=== PATIENT | male | born 1965 | race African-American/Black ===

== ENCOUNTER 2018-11-28 11:52 | Inpatient (IN) | payer OTHER ==
[2018-11-28 14:12] VITALS: BMI 22.1
--- NOTE | 2018-11-28 15:44 | HP ---
COWS - Scale Resting Pulse: 0= [place] 80 or Below Sweatin= Chills/Flushing Restless Observation: 1= Difficult to Sit Still Pupil Size: 0= Normal to Room Light Bone or Joint Aches: 2= Severe Diffuse Aches (back aches) Runny Nose/ Eye Tearin= Runny Nose/Eyes GI Upset > 30mins: 5=Frequent Vomit/Diarrhea (4x diarrhea this morning) Tremor Observation: 2= Slight Tremor Visible Yawning Observation: 0= None Anxiety or Irritability: 1=Feels Anxious/Irritable Goose Flesh Skin: 0=Smooth Skin COWS Score: 14 CIWA Score - Admission Criteria [facility]ASAS Guidelines: Admission for Medically Managed Detox: Requires at least one of the followin. CIWA greater than 12 2. Seizures within the past 24 hours 3. Delirium tremens within the past 24 hours 4. Hallucinations within the past 24 hours 5. Acute intervention needed for co occurring medical disorder 6. Acute intervention needed for co occurring psychiatric disorder 7. Severe withdrawal that cannot be handled at a lower level of care (continued vomiting, continued diarrhea, abnormal vital signs) requiring intravenous medication and/or fluids 8. Admitting History and Physical - Admission History of Present Illness: 52 y.o. M PMH AIDS on HAART-- noncompliant w/ meds x 2-3 weeks, Hep C untreated , genital herpes, heroin & cannabis dependence. Pt completed detox here in the past in 2013 and was clean up until early 2017. Recently he has had some major life stressors including multiple deaths in the family which had led him to start using drugs again. For 2 weeks he has not taken any medications because he has been spending $ on drugs rather than medications. He is willing to complete detox again in order to get back on track and take care of his medical health. Heroin: Started at 33y.o. Used to snort, now IV, started 3 weeks ago. Uses 5-10 bags per day. 1 bag is "1 mcdonalds spoon worth". Pt has been in withdrawal from heroin in the past- has N/V/D/ muscle aches. Longest sober period 2013- early 2017. Marijuana: uses daily since age 11. Sometimes 2 bags / day up to 5 bags/ day. Cigarettes: 3-5/ day x 20 years. Surgical hx: 1990 forehead surgery Social history: not working. gets social security. Lives in [facility]/ O correction for pts w/ AIDS. All:none Meds: prizista 800mg, tivicay 50mg, truvada 200/300mg, norvir 100mg. Ambien, multivitamins, bactrim. Limitations to Obtaining History: No Limitations - Past Medical History Hepatobiliary: Yes: Hepatitis C Infectious Disease: Yes: AIDS, HIV Psych: Yes: Anxiety - Past Surgical History Additional Past Surgical History: Forehead surgery for bony growth - Smoking History Smoking history: Current every day smoker Have you smoked in the past 12 months: Yes Aproximately how many cigarettes per day: 4 - Alcohol/Substance Use Hx Alcohol Use: No History of Substance Use: reports: Heroin, Marijuana - Social History Usual Living Arrangement: Yes: Alone History of Recent Travel: No Admission [facility] Allergies/Adverse Reactions: Allergies Allergy/AdvReac Type Severity Reaction Status Date / Time No Known Allergies Allergy Verified 11/28/18 13:53 - Ebola screening Have you traveled outside of the country in the last 21 days: No Have you had contact with anyone from an Ebola affected area: No Do you have a fever: No - Review of Systems Constitutional: Diaphoresis, Loss of Appetite, Night Sweats EENT: reports: Tearing, Nose Congestion Respiratory: reports: No Symptoms reported Cardiac: reports: No Symptoms Reported GI: reports: Diarrhea, Nausea, Vomiting : reports: No Symptoms Reported Musculoskeletal: reports: Back Pain Integumentary: reports: Other (RUE track chisholm. LE varicose veins.) Neuro: reports: No Symptoms reported Psychiatric: reports: Anxious Patient History - Patient Medical History Hx Anemia: No Hx Asthma: Yes (Pt is on MDI) Hx Chronic Obstructive Pulmonary Disease (COPD): No Hx Cancer: No Hx Cardiac Disorders: No Hx Congestive Heart Failure: No Hx Hypertension: No Hx Hypercholesterolemia: No Hx Pacemaker: No HX Cerebrovascular Accident: No Hx Seizures: No Hx Dementia: No Hx Diabetes: No Hx Gastrointestinal Disorders: No Hx Liver Disease: No Hx Genitourinary Disorders: No Hx Sexually Transmitted Disorders: Yes (Hx of gonnorhea and genital herpes) Hx Renal Disease (ESRD): No Hx Thyroid Disease: No Hx Human Immunodeficiency Virus (HIV): Yes (since 1990) Hx Hepatitis C: No Hx Depression: Yes Hx Suicide Attempt: No Hx Schizophrenia: No - Patient Surgical History Past Surgical History: Yes Other Surgical History: SX for removal of a growth from L forehead. - PPD History Date: 07/04/13 - Smoking Cessation Smoking history: Current every day smoker Have you smoked in the past 12 months: Yes Aproximately how many cigarettes per day: 4 Cigars Per Day: 0 Hx Chewing Tobacco Use: No Initiated information on smoking cessation: Yes 'Breaking Loose' booklet given: 11/28/18 - Substances abused Heroin Substance route: Injection Frequency: Daily Amount used: $50 Age of first use: 33 Date of last use: 11/27/18 Admission Physical Exam [facility] - Vital Signs Vital Signs: Vital Signs - 24 hr 11/28/18 14:06 Temperature 98.3 F Pulse Rate 76 Respiratory 18 Rate Blood Pressure 126/75 - Physical General Appearance: Yes: Within Normal Limits HEENTM: Yes: EOMI, Hearing grossly Normal, ALBER, Other (L forehead palpable firm mass- pt says he has had it since ) Respiratory: Yes: Lungs Clear, Normal Breath Sounds Neck: Yes: Within Normal Limits, Supple Cardiology: Yes: Within Normal Limits, Regular Rhythm, Regular Rate, S1, S2 Abdominal: Yes: Within Normal Limits, Normal Bowel Sounds, Soft Back: Yes: Within Normal Limits Musculoskeletal: Yes: full range of Motion Extremities: Yes: Other (Varicose veins present b/l. Excoriations on RLE d/t pruritis) Neurological: Yes: blueprint clerk II-XII NML intact, Alert Integumentary: Yes: Dry, Track Chisholm (b/l upper extremities) - Diagnostic (1) Hepatitis C Current Visit: Yes Status: Chronic Qualifiers: Viral hepatitis chronicity: chronic (2) Acquired immune deficiency syndrome (AIDS) Current Visit: No Status: Acute (3) Opioid dependence Current Visit: No Status: Acute (4) varicose vein of right leg Current Visit: No Status: Chronic Cleared for Admission S - Detox or Rehab [facility] Level of Care: Medically Managed Breathalyzer - Breathalyzer Breathalyzer: 0 Urine Drug Screen - Test Device Lot number: [id number] Expiration date: 07/06/20 - Control Is test valid?: Yes - Results Drug screen NEGATIVE: No Urine drug screen results: THC-Marijuana, MOP-Opiates Inpatient Rehab Admission - Rehab Decision to Admit Inpatient rehab admission?: No
[2018-11-28] MEDS ORDERED: hydrOXYzine PAMOATE 25 MG CAPSULE (FP) PO PRN (16:11)
[2018-11-28] MEDS ORDERED: METHOCARBAMOL 500 MG TABLET PO PRN (16:11)
[2018-11-28] MEDS ORDERED: MAGNESIUM CITRATE 300 ML BOTTLE PO PRN (16:11)
[2018-11-28] MEDS ORDERED: MENTHOL/PHENOL 1 EACH UD MM PRN (16:11)
[2018-11-28] MEDS ORDERED: MAGNESIUM HYDROX 2400MG/30ML ORAL SUSPENSION 30 ML CUP PO PRN (16:11)
[2018-11-28] MEDS ORDERED: NICOTINE POLACRILEX 2 MG GUM BUC PRN (16:11)
[2018-11-28] MEDS ORDERED: IBUPROFEN 400 MG TABLET (FP) PO PRN (16:11)
[2018-11-28] MEDS ORDERED: MAG HYDROX/AL HYDROX/SIMETH 30 ML UNIT-DOSE CUP PO PRN (16:11)
[2018-11-28] MEDS ORDERED: BISMUTH SUBSALICYLATE 524 MG/30 ML UD PO PRN (16:11)
[2018-11-28] MEDS ORDERED: ACETAMINOPHEN 325 MG TABLET (FP) PO PRN ×2 (16:11)
[2018-11-28] MEDS ORDERED: MELATONIN 5 MG TABLETS PO PRN (16:11)
[2018-11-28] MEDS ORDERED: METHADONE HCL 10 MG TABLET (FOR DETOX USE ONLY) PO ONE (16:15)
[2018-11-28] MEDS ORDERED: cloNIDine HCL 0.1 MG TABLET PO PRN (16:15)
[2018-11-28] MEDS ORDERED: diazePAM 5 MG TABLET PO PRN (16:16)
--- NOTE | 2018-11-28 16:23 | PN ---
Teaching Attending Note Name of Resident: Bailey Lazo ATTENDING PHYSICIAN STATEMENT I saw and evaluated the patient. I reviewed the resident's note and discussed the case with the resident. I agree with the resident's findings and plan as documented. SUBJECTIVE: this 52 years old male with opioid dependence with cannabis dependence ,hiv, insomnia,had previous admission before,last 2013,longest sobriety 5 years patient was born with congenital frontal bone deformity OBJECTIVE:withdrawal signs and symptom ASSESSMENT AND PLAN: this 52 years old male with heroin and cannabis dependence,need inpatient detox methadone regimen,medically managed
[2018-11-28] MEDS: SULFAMETHOXAZOLE/TRIMETHOPRIM 800MG/160MG D.S. TABLET PO SCH (18:30)
[2018-11-28] MEDS: NICOTINE 14 MG/24 HOURS TOPICAL PATCH TD SCH (18:30)
[2018-11-28] MEDS: DARUNAVIR ETHANOLATE 800 MG TAB PO SCH (19:53)
[2018-11-28] MEDS: RITONAVIR 100 MG TABLET PO SCH (19:54)
[2018-11-28] MEDS: DOLUTEGRAVIR SODIUM 50 MG TABLET (NON-FORMULARY) PO SCH (19:54)
[2018-11-28] MEDS: EMTRICITABINE 200MG/TENOFOVIR 300MG PO SCH (19:54)
[2018-11-28] MEDS: THIAMINE HCL 100 MG TABLET (FP) PO SCH (22:06)
[2018-11-29] MEDS ORDERED: METHADONE HCL 10 MG TABLET (FOR DETOX USE ONLY) ONE (09:21)
[2018-11-29] MEDS ORDERED: METHADONE HCL 5 MG TABLET (FOR DETOX USE ONLY) ONE (09:21)
[2018-11-29 09:57] LABS: HEMATOCRIT 36.8 % (35.4-49); HEMOGLOBIN 12.4 GM/dL (11.7-16.9); MCHC 33.8 g/dl (32.0-35.9); MEAN CELL VOLUME 88.9 fl (80-96); MEAN PLT VOLUME 9.2 fl (7.5-11.1); PLATELET COUNT 117 K/MM3 (134-434); RBC 4.14 M/mm3 (4.00-5.60); WHITE BLOOD COUNT 2.6 K/mm3 (4.0-10.0)
[2018-11-29] MEDS ORDERED: METHADONE (DETOX) 20 MG, METHADONE (DETOX) 5 MG PO ONE (10:00)
[2018-11-29] MEDS ORDERED: AZITHROMYCIN 600 MG TABLET PO SCH (10:00)
[2018-11-29 10:14] LABS: ALBUMIN 3.2 g/dl (3.4-5.0); BILIRUBIN,TOTAL 0.8 mg/dL (0.2-1); BLOOD UREA NITROGEN 18.8 mg/dL (7-18); CALCIUM 8.5 mg/dL (8.5-10.1); CREATININE 0.9 mg/dL (0.55-1.3); POTASSIUM 4.4 mmol/L (3.5-5.1); TOT PROT 6.4 g/dl (6.4-8.2)
[2018-11-29] MEDS: SULFAMETHOXAZOLE/TRIMETHOPRIM 800MG/160MG D.S. TABLET PO SCH (10:22)
[2018-11-29] MEDS: PRENATAL VITAMINS W/ FOLIC ACID TABLET (FP) PO SCH (10:22)
[2018-11-29] MEDS: NICOTINE 14 MG/24 HOURS TOPICAL PATCH TD SCH (10:23)
--- NOTE | 2018-11-29 10:47 | PN ---
S Progress Note Note: Patient was approached in the day room. he told radio script writer:" I was asked if I want to talk to you and I said no I don't."
[2018-11-29] MEDS: DARUNAVIR ETHANOLATE 800 MG TAB PO SCH (11:38)
[2018-11-29] MEDS: RITONAVIR 100 MG TABLET PO SCH (11:38)
[2018-11-29] MEDS: EMTRICITABINE 200MG/TENOFOVIR 300MG PO SCH (11:38)
[2018-11-29] MEDS: DOLUTEGRAVIR SODIUM 50 MG TABLET (NON-FORMULARY) PO SCH (11:38)
--- NOTE | 2018-11-29 12:58 | PN ---
S COWS - Scale Resting Pulse: 0= [place] 80 or Below Sweatin= Chills/Flushing Restless Observation: 0= Sits Still Pupil Size: 1= Pupils >than Normal Bone or Joint Aches: 1= Mild Discomfort Runny Nose/ Eye Tearin= Nasal Congestion GI Upset > 30mins: 0= None Tremor Observation of Outstretched Hands: 1= Tremor [place], Not Seen Yawning Observation: 1= 1-2x During Session Anxiety or Irritability: 2=Irritable/Anxious Goose Flesh Skin: 3=Piloerection COWS Score: 11 S Progress Note (SOAP) Subjective: doing well with methadone detox regimen ambulating on hallway social with staff discuss medication assisted treatment program Objective: 11/29/18 12:56 Vital Signs Temperature 97.6 F 11/29/18 09:19 Pulse Rate 65 11/29/18 09:19 Respiratory Rate 18 11/29/18 09:19 Blood Pressure 108/80 11/29/18 09:19 O2 Sat by Pulse Oximetry (%) Laboratory Last Values WBC 2.6 K/mm3 (4.0-10.0) L 11/29/18 08:15 RBC 4.14 M/mm3 (4.00-5.60) 11/29/18 08:15 Hgb 12.4 GM/dL (11.7-16.9) 11/29/18 08:15 Hct 36.8 % (35.4-49) 11/29/18 08:15 MCV 88.9 fl (80-96) 11/29/18 08:15 MCH 30.0 pg (25.7-33.7) 11/29/18 08:15 MCHC 33.8 g/dl (32.0-35.9) 11/29/18 08:15 RDW 14.0 % (11.9-15.9) 11/29/18 08:15 Plt Count 117 K/MM3 (134-434) L D 11/29/18 08:15 MPV 9.2 fl (7.5-11.1) 11/29/18 08:15 Sodium 140 mmol/L (136-145) 11/29/18 08:15 Potassium 4.4 mmol/L (3.5-5.1) 11/29/18 08:15 Chloride 108 mmol/L (98-107) H 11/29/18 08:15 Carbon Dioxide 27 mmol/L (21-32) 11/29/18 08:15 Anion Gap 5 MMOL/L (8-16) L 11/29/18 08:15 BUN 18.8 mg/dL (7-18) H 11/29/18 08:15 Creatinine 0.9 mg/dL (0.55-1.3) 11/29/18 08:15 Est GFR (CKD-EPI)AfAm 113.41 11/29/18 08:15 Est GFR (CKD-EPI)NonAf 97.85 11/29/18 08:15 Random Glucose 90 mg/dL (74-106) 11/29/18 08:15 Calcium 8.5 mg/dL (8.5-10.1) 11/29/18 08:15 Total Bilirubin 0.8 mg/dL (0.2-1) 11/29/18 08:15 AST 13 U/L (15-37) L 11/29/18 08:15 ALT 18 U/L (13-61) 11/29/18 08:15 Alkaline Phosphatase 74 U/L (45-117) 11/29/18 08:15 Total Protein 6.4 g/dl (6.4-8.2) 11/29/18 08:15 Albumin 3.2 g/dl (3.4-5.0) L 11/29/18 08:15 RPR Titer Nonreactive (NONREACTIVE) 11/29/18 08:15 lab noted long history of hiv patient agrees to share lab report with his ID provider Assessment: 11/29/18 12:58 opiate withdrawal sx Plan: continue methadone detox regimen
[2018-11-29 15:49] LABS: URINE APPEARANCE CLEAR; URINE BILIRUBIN NEGATIVE (NEGATIVE); URINE COLOR YELLOW; URINE GLUCOSE (UA) NEGATIVE (NEGATIVE); URINE KETONE NEGATIVE (NEGATIVE); URINE LEUK ESTERASE NEGATIVE (NEGATIVE); URINE NITRITE NEGATIVE (NEGATIVE); URINE PROTEIN NEGATIVE (NEGATIVE); URINE UROBILINOGEN 0.2 mg/dL (0.2-1.0)
[2018-11-29] MEDS: THIAMINE HCL 100 MG TABLET (FP) PO SCH (22:03)
[2018-11-30] MEDS: SULFAMETHOXAZOLE/TRIMETHOPRIM 800MG/160MG D.S. TABLET PO SCH (09:44)
[2018-11-30] MEDS: DARUNAVIR ETHANOLATE 800 MG TAB PO SCH (09:45)
[2018-11-30] MEDS: EMTRICITABINE 200MG/TENOFOVIR 300MG PO SCH (09:45)
[2018-11-30] MEDS: PRENATAL VITAMINS W/ FOLIC ACID TABLET (FP) PO SCH (09:45)
[2018-11-30] MEDS: RITONAVIR 100 MG TABLET PO SCH (09:45)
[2018-11-30] MEDS: DOLUTEGRAVIR SODIUM 50 MG TABLET (NON-FORMULARY) PO SCH (09:45)
[2018-11-30] MEDS ORDERED: METHADONE HCL 10 MG TABLET (FOR DETOX USE ONLY) PO ONE (10:00)
[2018-11-30] MEDS: NICOTINE 14 MG/24 HOURS TOPICAL PATCH TD SCH (10:27)
--- NOTE | 2018-11-30 17:02 | PN ---
BHS COWS - Scale Resting Pulse: 0= [place] 80 or Below Sweatin= Chills/Flushing Restless Observation: 1= Difficult to Sit Still Pupil Size: 0= Normal to Room Light Bone or Joint Aches: 1= Mild Discomfort Runny Nose/ Eye Tearin= None GI Upset > 30mins: 2= Nausea/Diarrhea Tremor Observation of Outstretched Hands: 0= None Yawning Observation: 1= 1-2x During Session Anxiety or Irritability: 2=Irritable/Anxious Goose Flesh Skin: 0=Smooth Skin COWS Score: 8 BHS Progress Note (SOAP) Subjective: Nausea, Anxious, Poor Appetite. Objective: PATIENT A & O X 3, OBSERVED AMBULATING ON DETOX UNIT UNASSISTED. IN NO ACUTE DISTRESS. 11/30/18 17:00 Vital Signs Temperature 98.3 F 11/30/18 13:42 Pulse Rate 70 11/30/18 13:42 Respiratory Rate 18 11/30/18 13:42 Blood Pressure 115/74 11/30/18 13:42 O2 Sat by Pulse Oximetry (%) Laboratory Tests 11/29/18 11/29/18 11/29/18 08:15 08:15 08:15 WBC 2.6 L RBC 4.14 Hgb 12.4 Hct 36.8 MCV 88.9 MCH 30.0 MCHC 33.8 RDW 14.0 Plt Count 117 L D MPV 9.2 Sodium 140 Potassium 4.4 Chloride 108 H Carbon Dioxide 27 Anion Gap 5 L BUN 18.8 H Creatinine 0.9 Est GFR (CKD-EPI)AfAm 113.41 Est GFR (CKD-EPI)NonAf 97.85 Random Glucose 90 Calcium 8.5 Total Bilirubin 0.8 AST 13 L ALT 18 Alkaline Phosphatase 74 Total Protein 6.4 Albumin 3.2 L Urine Color Urine Appearance Urine pH Ur Specific [place] Urine Protein Urine Glucose (UA) Urine Ketones Urine Blood Urine Nitrite Urine Bilirubin Urine Urobilinogen Ur Leukocyte Esterase RPR Titer Nonreactive 11/29/18 11:10 WBC RBC Hgb Hct MCV MCH MCHC RDW Plt Count MPV Sodium Potassium Chloride Carbon Dioxide Anion Gap BUN Creatinine Est GFR (CKD-EPI)AfAm Est GFR (CKD-EPI)NonAf Random Glucose Calcium Total Bilirubin AST ALT Alkaline Phosphatase Total Protein Albumin Urine Color Yellow Urine Appearance Clear Urine pH 6.0 Ur Specific [place] 1.028 Urine Protein Negative Urine Glucose (UA) Negative Urine Ketones Negative Urine Blood Negative Urine Nitrite Negative Urine Bilirubin Negative Urine Urobilinogen 0.2 Ur Leukocyte Esterase Negative RPR Titer LABS NOTED. PATIENT HAD LOW PLATELET LEVEL ON PREVIOUS ADMISSION IN 2013. RESULTS OF DETOX ADMISSION QFT /TB TEST PENDING. 11/30/18 17:01 Assessment: 11/30/18 17:01 WITHDRAWAL SYMPTOMS. LEUKOPENIA. THROMBOCYTOPENIA. Plan: CONTINUE DETOX. ENSURE PO FOR CALORIC SUPPLEMENTATION.
[2018-11-30] MEDS: THIAMINE HCL 100 MG TABLET (FP) PO SCH (22:05)
[2018-12-01] MEDS ORDERED: METHADONE HCL 10 MG TABLET (FOR DETOX USE ONLY) ONE (09:56)
[2018-12-01] MEDS ORDERED: METHADONE HCL 5 MG TABLET (FOR DETOX USE ONLY) ONE (09:57)
[2018-12-01] MEDS ORDERED: METHADONE (DETOX) 10 MG, METHADONE (DETOX) 5 MG PO ONE (10:00)
[2018-12-01] MEDS: PRENATAL VITAMINS W/ FOLIC ACID TABLET (FP) PO SCH (11:05)
[2018-12-01] MEDS: NICOTINE 14 MG/24 HOURS TOPICAL PATCH TD SCH (11:05)
[2018-12-01] MEDS: SULFAMETHOXAZOLE/TRIMETHOPRIM 800MG/160MG D.S. TABLET PO SCH (11:05)
[2018-12-01] MEDS: DOLUTEGRAVIR SODIUM 50 MG TABLET (NON-FORMULARY) PO SCH (13:05)
[2018-12-01] MEDS: EMTRICITABINE 200MG/TENOFOVIR 300MG PO SCH (13:06)
[2018-12-01] MEDS: DARUNAVIR ETHANOLATE 800 MG TAB PO SCH (13:06)
[2018-12-01] MEDS: RITONAVIR 100 MG TABLET PO SCH (13:06)
[2018-12-01] MEDS ORDERED: TRIMETHOBENZAMIDE HCL 200MG/2ML INJ IM PRN (15:22)
--- NOTE | 2018-12-01 15:23 | PN ---
BHS COWS - Scale Resting Pulse: 1= [place] 81-100 Sweatin= No chills or Flushing Restless Observation: 1= Difficult to Sit Still Pupil Size: 0= Normal to Room Light Bone or Joint Aches: 0= None Runny Nose/ Eye Tearin= None GI Upset > 30mins: 2= Nausea/Diarrhea Tremor Observation of Outstretched Hands: 0= None Yawning Observation: 1= 1-2x During Session Anxiety or Irritability: 2=Irritable/Anxious Goose Flesh Skin: 0=Smooth Skin COWS Score: 7 BHS Progress Note (SOAP) Subjective: Nausea, Anxious. Objective: PATIENT A & O X 3, OBSERVED AMBULATING ON DETOX UNIT UNASSISTED. IN NO ACUTE DISTRESS. 12/01/18 15:24 Vital Signs Temperature 99.8 F H 12/01/18 09:56 Pulse Rate 81 12/01/18 09:56 Respiratory Rate 18 12/01/18 09:56 Blood Pressure 108/72 12/01/18 09:56 O2 Sat by Pulse Oximetry (%) Laboratory Tests 11/29/18 11/29/18 11/29/18 08:15 08:15 08:15 WBC 2.6 L RBC 4.14 Hgb 12.4 Hct 36.8 MCV 88.9 MCH 30.0 MCHC 33.8 RDW 14.0 Plt Count 117 L D MPV 9.2 Sodium 140 Potassium 4.4 Chloride 108 H Carbon Dioxide 27 Anion Gap 5 L BUN 18.8 H Creatinine 0.9 Est GFR (CKD-EPI)AfAm 113.41 Est GFR (CKD-EPI)NonAf 97.85 Random Glucose 90 Calcium 8.5 Total Bilirubin 0.8 AST 13 L ALT 18 Alkaline Phosphatase 74 Total Protein 6.4 Albumin 3.2 L Urine Color Urine Appearance Urine pH Ur Specific [place] Urine Protein Urine Glucose (UA) Urine Ketones Urine Blood Urine Nitrite Urine Bilirubin Urine Urobilinogen Ur Leukocyte Esterase RPR Titer TB (QFT) Incubation TB Test (QFT) Nil 0.03 TB Test (QFT) Mitogen 4.45 TB Test (QFT) Antigen 0.03 TB Test (QFT) Negative TB Positive Criteria 11/29/18 11/29/18 08:15 11:10 WBC RBC Hgb Hct MCV MCH MCHC RDW Plt Count MPV Sodium Potassium Chloride Carbon Dioxide Anion Gap BUN Creatinine Est GFR (CKD-EPI)AfAm Est GFR (CKD-EPI)NonAf Random Glucose Calcium Total Bilirubin AST ALT Alkaline Phosphatase Total Protein Albumin Urine Color Yellow Urine Appearance Clear Urine pH 6.0 Ur Specific [place] 1.028 Urine Protein Negative Urine Glucose (UA) Negative Urine Ketones Negative Urine Blood Negative Urine Nitrite Negative Urine Bilirubin Negative Urine Urobilinogen 0.2 Ur Leukocyte Esterase Negative RPR Titer Nonreactive TB (QFT) Incubation TB Test (QFT) Nil TB Test (QFT) Mitogen TB Test (QFT) Antigen TB Test (QFT) TB Positive Criteria LABS NOTED. Assessment: 12/01/18 15:26 WITHDRAWAL SYMPTOMS. LEUKOPENIA. THROMBOCYTOPENIA. Plan: CONTINUE DETOX. PRN TIGAN IM FOR NAUSEA. INCREASE DAILY PO WATER INTAKE.
[2018-12-01] MEDS: THIAMINE HCL 100 MG TABLET (FP) PO SCH (21:39)
[2018-12-02] MEDS ORDERED: METHADONE HCL 10 MG TABLET (FOR DETOX USE ONLY) PO ONE (10:00)
[2018-12-02] MEDS: PRENATAL VITAMINS W/ FOLIC ACID TABLET (FP) PO SCH (10:30)
[2018-12-02] MEDS: SULFAMETHOXAZOLE/TRIMETHOPRIM 800MG/160MG D.S. TABLET PO SCH (10:31)
[2018-12-02] MEDS: NICOTINE 14 MG/24 HOURS TOPICAL PATCH TD SCH (11:14)
--- NOTE | 2018-12-02 11:34 | PN ---
BHS COWS - Scale Resting Pulse: 1= [place] 81-100 Sweatin= No chills or Flushing Restless Observation: 1= Difficult to Sit Still Pupil Size: 0= Normal to Room Light Bone or Joint Aches: 1= Mild Discomfort Runny Nose/ Eye Tearin= None GI Upset > 30mins: 0= None Tremor Observation of Outstretched Hands: 1= Tremor [place], Not Seen Yawning Observation: 0= None Anxiety or Irritability: 1=Feels Anxious/Irritable Goose Flesh Skin: 0=Smooth Skin COWS Score: 5 BHS Progress Note (SOAP) Subjective: 52 years old male admitted on 11/28/18 for opiate withdrawal sx management treated with methadone detox regimen patient tolerate well at this time discuss medication assisted treatment program Objective: 12/02/18 11:33 Vital Signs Temperature 97.6 F 12/02/18 09:18 Pulse Rate 82 12/02/18 09:18 Respiratory Rate 18 12/02/18 09:18 Blood Pressure 125/75 12/02/18 09:18 O2 Sat by Pulse Oximetry (%) Laboratory Last Values WBC 2.6 K/mm3 (4.0-10.0) L 11/29/18 08:15 RBC 4.14 M/mm3 (4.00-5.60) 11/29/18 08:15 Hgb 12.4 GM/dL (11.7-16.9) 11/29/18 08:15 Hct 36.8 % (35.4-49) 11/29/18 08:15 MCV 88.9 fl (80-96) 11/29/18 08:15 MCH 30.0 pg (25.7-33.7) 11/29/18 08:15 MCHC 33.8 g/dl (32.0-35.9) 11/29/18 08:15 RDW 14.0 % (11.9-15.9) 11/29/18 08:15 Plt Count 117 K/MM3 (134-434) L D 11/29/18 08:15 MPV 9.2 fl (7.5-11.1) 11/29/18 08:15 Sodium 140 mmol/L (136-145) 11/29/18 08:15 Potassium 4.4 mmol/L (3.5-5.1) 11/29/18 08:15 Chloride 108 mmol/L (98-107) H 11/29/18 08:15 Carbon Dioxide 27 mmol/L (21-32) 11/29/18 08:15 Anion Gap 5 MMOL/L (8-16) L 11/29/18 08:15 BUN 18.8 mg/dL (7-18) H 11/29/18 08:15 Creatinine 0.9 mg/dL (0.55-1.3) 11/29/18 08:15 Est GFR (CKD-EPI)AfAm 113.41 11/29/18 08:15 Est GFR (CKD-EPI)NonAf 97.85 11/29/18 08:15 Random Glucose 90 mg/dL (74-106) 11/29/18 08:15 Calcium 8.5 mg/dL (8.5-10.1) 11/29/18 08:15 Total Bilirubin 0.8 mg/dL (0.2-1) 11/29/18 08:15 AST 13 U/L (15-37) L 11/29/18 08:15 ALT 18 U/L (13-61) 11/29/18 08:15 Alkaline Phosphatase 74 U/L (45-117) 11/29/18 08:15 Total Protein 6.4 g/dl (6.4-8.2) 11/29/18 08:15 Albumin 3.2 g/dl (3.4-5.0) L 11/29/18 08:15 Urine Color Yellow 11/29/18 11:10 Urine Appearance Clear 11/29/18 11:10 Urine pH 6.0 (5.0-8.0) 11/29/18 11:10 Ur Specific [place] 1.028 (1.010-1.035) 11/29/18 11:10 Urine Protein Negative (NEGATIVE) 11/29/18 11:10 Urine Glucose (UA) Negative (NEGATIVE) 11/29/18 11:10 Urine Ketones Negative (NEGATIVE) 11/29/18 11:10 Urine Blood Negative (NEGATIVE) 11/29/18 11:10 Urine Nitrite Negative (NEGATIVE) 11/29/18 11:10 Urine Bilirubin Negative (NEGATIVE) 11/29/18 11:10 Urine Urobilinogen 0.2 mg/dL (0.2-1.0) 11/29/18 11:10 Ur Leukocyte Esterase Negative (NEGATIVE) 11/29/18 11:10 RPR Titer Nonreactive (NONREACTIVE) 11/29/18 08:15 TB (QFT) Incubation (.) 11/29/18 08:15 TB Test (QFT) Nil 0.03 IU/mL (.) 11/29/18 08:15 TB Test (QFT) Mitogen 4.45 IU/mL (.) 11/29/18 08:15 TB Test (QFT) Antigen 0.03 IU/mL (.) 11/29/18 08:15 TB Test (QFT) Negative (Negative) 11/29/18 08:15 TB Positive Criteria (.) 11/29/18 08:15 lab noted long history of hiv treated with ART with low wbc patient agrees to bringing in lab report to ID provider for follow up Assessment: 12/02/18 11:34 opiate withdrawal ax Plan: continue methadone detox regimen
[2018-12-02] MEDS: DOLUTEGRAVIR SODIUM 50 MG TABLET (NON-FORMULARY) PO SCH (13:05)
[2018-12-02] MEDS: RITONAVIR 100 MG TABLET PO SCH (13:06)
[2018-12-02] MEDS: EMTRICITABINE 200MG/TENOFOVIR 300MG PO SCH (13:06)
[2018-12-02] MEDS: DARUNAVIR ETHANOLATE 800 MG TAB PO SCH (13:06)
[2018-12-02] MEDS: THIAMINE HCL 100 MG TABLET (FP) PO SCH (22:53)
[2018-12-03] MEDS ORDERED: METHADONE HCL 5 MG TABLET (FOR DETOX USE ONLY) PO ONE (06:00)
[2018-12-03 09:19] VITALS: BP 110/77; PULSE 88; TEMP 97.5
[2018-12-03] MEDS: PRENATAL VITAMINS W/ FOLIC ACID TABLET (FP) PO SCH (09:26)
[2018-12-03] MEDS: SULFAMETHOXAZOLE/TRIMETHOPRIM 800MG/160MG D.S. TABLET PO SCH (09:26)
[2018-12-03] MEDS: DOLUTEGRAVIR SODIUM 50 MG TABLET (NON-FORMULARY) PO SCH (09:27)
[2018-12-03] MEDS: EMTRICITABINE 200MG/TENOFOVIR 300MG PO SCH (09:27)
[2018-12-03] MEDS: NICOTINE 14 MG/24 HOURS TOPICAL PATCH TD SCH (09:27)
[2018-12-03] MEDS: DARUNAVIR ETHANOLATE 800 MG TAB PO SCH (09:27)
[2018-12-03] MEDS: RITONAVIR 100 MG TABLET PO SCH (09:27)
--- NOTE | 2018-12-03 15:23 | DS ---
[facility] Detox Discharge Summary Admission Date: 11/28/18 Discharge Date: 12/03/18 - History Present History: Opioid Dependence Additional Comments: 52 years old male admitted on 11/28/18 for opiate withdrawal sx management treated with methadone detox regimen patient tolerate well patient is alert oriented x 3 respiratory clear lung bilaterally on auscultation abdomen soft no rebound tenderness skin warm dry - Physical Exam Results Vital Signs: Vital Signs Temperature 97.5 F L 12/03/18 09:18 Pulse Rate 88 12/03/18 09:18 Respiratory Rate 18 12/03/18 09:18 Blood Pressure 110/77 12/03/18 09:18 O2 Sat by Pulse Oximetry (%) Pertinent Admission Physical Exam Findings: opiate withdrawal sx Laboratory Last Values WBC 2.6 K/mm3 (4.0-10.0) L 11/29/18 08:15 RBC 4.14 M/mm3 (4.00-5.60) 11/29/18 08:15 Hgb 12.4 GM/dL (11.7-16.9) 11/29/18 08:15 Hct 36.8 % (35.4-49) 11/29/18 08:15 MCV 88.9 fl (80-96) 11/29/18 08:15 MCH 30.0 pg (25.7-33.7) 11/29/18 08:15 MCHC 33.8 g/dl (32.0-35.9) 11/29/18 08:15 RDW 14.0 % (11.9-15.9) 11/29/18 08:15 Plt Count 117 K/MM3 (134-434) L D 11/29/18 08:15 MPV 9.2 fl (7.5-11.1) 11/29/18 08:15 Sodium 140 mmol/L (136-145) 11/29/18 08:15 Potassium 4.4 mmol/L (3.5-5.1) 11/29/18 08:15 Chloride 108 mmol/L (98-107) H 11/29/18 08:15 Carbon Dioxide 27 mmol/L (21-32) 11/29/18 08:15 Anion Gap 5 MMOL/L (8-16) L 11/29/18 08:15 BUN 18.8 mg/dL (7-18) H 11/29/18 08:15 Creatinine 0.9 mg/dL (0.55-1.3) 11/29/18 08:15 Est GFR (CKD-EPI)AfAm 113.41 11/29/18 08:15 Est GFR (CKD-EPI)NonAf 97.85 11/29/18 08:15 Random Glucose 90 mg/dL (74-106) 11/29/18 08:15 Calcium 8.5 mg/dL (8.5-10.1) 11/29/18 08:15 Total Bilirubin 0.8 mg/dL (0.2-1) 11/29/18 08:15 AST 13 U/L (15-37) L 11/29/18 08:15 ALT 18 U/L (13-61) 11/29/18 08:15 Alkaline Phosphatase 74 U/L (45-117) 11/29/18 08:15 Total Protein 6.4 g/dl (6.4-8.2) 11/29/18 08:15 Albumin 3.2 g/dl (3.4-5.0) L 11/29/18 08:15 Urine Color Yellow 11/29/18 11:10 Urine Appearance Clear 11/29/18 11:10 Urine pH 6.0 (5.0-8.0) 11/29/18 11:10 Ur Specific [place] 1.028 (1.010-1.035) 11/29/18 11:10 Urine Protein Negative (NEGATIVE) 11/29/18 11:10 Urine Glucose (UA) Negative (NEGATIVE) 11/29/18 11:10 Urine Ketones Negative (NEGATIVE) 11/29/18 11:10 Urine Blood Negative (NEGATIVE) 11/29/18 11:10 Urine Nitrite Negative (NEGATIVE) 11/29/18 11:10 Urine Bilirubin Negative (NEGATIVE) 11/29/18 11:10 Urine Urobilinogen 0.2 mg/dL (0.2-1.0) 11/29/18 11:10 Ur Leukocyte Esterase Negative (NEGATIVE) 11/29/18 11:10 RPR Titer Nonreactive (NONREACTIVE) 11/29/18 08:15 TB (QFT) Incubation (.) 11/29/18 08:15 TB Test (QFT) Nil 0.03 IU/mL (.) 11/29/18 08:15 TB Test (QFT) Mitogen 4.45 IU/mL (.) 11/29/18 08:15 TB Test (QFT) Antigen 0.03 IU/mL (.) 11/29/18 08:15 TB Test (QFT) Negative (Negative) 11/29/18 08:15 TB Positive Criteria (.) 11/29/18 08:15 lab noted long history of hiv treated with ART patient agrees to bringing in lab report to ID provider for follow up - Treatment Hospital Course: Detox Protocol Followed, Detoxed Safely, Responded well, Discharged Condition Good, Rehab Referral Accepted Patient has Accepted a Rehab Referral to: hiv clinic behavior therapy - Medication Discharge Medications: Ambulatory Orders Azithromycin [Zithromax 600mg Tablets -] 1,200 mg PO WEEKLY #10 tablet 07/08/13 Darunavir Ethanolate [Prezista -] 800 mg PO DAILY #30 tablet 07/08/13 Dolutegravir Sodium [Tivicay] 50 mg PO DAILY #30 tablet 07/08/13 Ritonavir [Norvir -] 100 mg PO DAILY #30 tab 07/08/13 Emtricitabine/Tenofovir [Truvada -] 200 - 300 tab PO DAILY 11/28/18 Sulfamethoxazole/Trimethoprim [Bactrim DS -] 1 tab PO DAILY 11/28/18 Naloxone HCl [Narcan] 4 mg NS ASDIR PRN #1 spray 11/29/18 - Diagnosis (1) Acquired immune deficiency syndrome (AIDS) Status: Chronic (2) Asthma Status: Chronic Qualifiers: Asthma severity: mild Asthma persistence: intermittent Asthma complication type: with status asthmaticus Qualified Code(s): J45.22 - Mild intermittent asthma with status asthmaticus (3) Opioid dependence Status: Acute Qualifiers: Substance use status: uncomplicated Qualified Code(s): F11.20 - Opioid dependence, uncomplicated (4) Weight decreased Status: Acute (5) Hepatitis C Status: Chronic Qualifiers: Viral hepatitis chronicity: chronic - AMA Did Patient Leave Against Medical Advice: No COWS (PN) - Opiate Withdrawal Resting Pulse: 1= [place] 81-100 Sweatin= Chills/Flushing Restless Observation: 0= Sits Still Pupil Size: 0= Normal to Room Light Bone or Joint Aches: 1= Mild Discomfort Runny Nose/ Eye Tearin= None GI Upset > 30mins: 0= None Tremor Observation of Outstretched Hands: 0= None Yawning Observation: 0= None Anxiety or Irritability: 0= None Goose Flesh Skin: 0=Smooth Skin COWS Score: 3
== END 2018-12-03 09:28 | disposition home or self-care (01) | DRG 773 ==
LOC: YASAS 11:52 → Y3N 17:21
PROVIDERS: ADMIT Allergy & Immunology; ATTEND Allergy & Immunology
PROC: HZ2ZZZZ Detoxification Services for Substance Abuse Treatment (ICD-10-PCS; principal; 2018-11-28)
DX: F11.23 Opioid dependence with withdrawal (principal); F12.20 Cannabis dependence, uncomplicated; F17.210 Nicotine dependence, cigarettes, uncomplicated; B20 Human immunodeficiency virus [HIV] disease; J45.22 Mild intermittent asthma with status asthmaticus; R63.4 Abnormal weight loss; B18.2 Chronic viral hepatitis C; D69.6 Thrombocytopenia, unspecified; D72.819 Decreased white blood cell count, unspecified; G47.00 Insomnia, unspecified; I83.91 Asymptomatic varicose veins of right lower extremity; Z87.438 Personal history of other diseases of male genital organs; Z91.14 Patient's other noncompliance with medication regimen
CPT/HCPCS: 36415; 80053; 81003; 85027; 86480; 86593

== ENCOUNTER 2019-08-18 10:16 | Inpatient (IN) | payer OTHER ==
[2019-08-18 11:17] VITALS: BMI 22.2
--- NOTE | 2019-08-18 12:12 | HP ---
COWS - Scale Resting Pulse: 0= [place] 80 or Below Sweatin= Chills/Flushing Restless Observation: 0= Sits Still Pupil Size: 0= Normal to Room Light Bone or Joint Aches: 1= Mild Discomfort Runny Nose/ Eye Tearin= None GI Upset > 30mins: 2= Nausea/Diarrhea Tremor Observation: 1= Tremor [place], Not Seen Yawning Observation: 1= 1-2x During Session Anxiety or Irritability: 1=Feels Anxious/Irritable Goose Flesh Skin: 3=Piloerection COWS Score: 10 CIWA Score - Admission Criteria OASAS Guidelines: Admission for Medically Managed Detox: Requires at least one of the followin. CIWA greater than 12 2. Seizures within the past 24 hours 3. Delirium tremens within the past 24 hours 4. Hallucinations within the past 24 hours 5. Acute intervention needed for co occurring medical disorder 6. Acute intervention needed for co occurring psychiatric disorder 7. Severe withdrawal that cannot be handled at a lower level of care (continued vomiting, continued diarrhea, abnormal vital signs) requiring intravenous medication and/or fluids 8. Admitting History and Physical - Past Medical History Hepatobiliary: Yes: Hepatitis C Infectious Disease: Yes: AIDS, HIV Psych: Yes: Anxiety - Smoking History Smoking history: Current every day smoker Have you smoked in the past 12 months: Yes Aproximately how many cigarettes per day: 4 - Alcohol/Substance Use Hx Alcohol Use: No History of Substance Use: reports: Heroin, Marijuana - Social History History of Recent Travel: No Admission [facility] Chief Complaint: Heroin withdrawal symptoms Allergies/Adverse Reactions: Allergies Allergy/AdvReac Type Severity Reaction Status Date / Time No Known Allergies Allergy Verified 08/18/19 11:32 History of Present Illness: 53 year old man with heroin dependence presents for detox. He reports OD sometime in March of this year. Patient has HIV, he reports non-compliance with meds x 4 months. He has been instructed to see PCP post discharge to restart HAART, he verbalized understanding. Exam Limitations: No Limitations - Ebola screening Have you traveled outside of the country in the last 21 days: No Have you had contact with anyone from an Ebola affected area: No Have you been sick,other than usual withdrawal symptoms: No Do you have a fever: No - Review of Systems Constitutional: Chills, Loss of Appetite, Changes in sleep, Unintentional Wgt. Loss EENT: reports: Nose Congestion Respiratory: reports: No Symptoms reported Cardiac: reports: No Symptoms Reported GI: reports: Diarrhea, Nausea, Poor Appetite, Abdominal cramping : reports: No Symptoms Reported Musculoskeletal: reports: Muscle Weakness Integumentary: reports: Sweating Endocrine: reports: No Symptoms Reported Hematology: reports: No Symptoms Reported Psychiatric: reports: No Sypmtoms Reported Other Systems: Reviewed and Negative Patient History - Patient Medical History Hx Anemia: No Hx Asthma: Yes (childhood asthma) Hx Chronic Obstructive Pulmonary Disease (COPD): No Hx Cancer: No Hx Cardiac Disorders: No Hx Congestive Heart Failure: No Hx Hypertension: No Hx Hypercholesterolemia: No Hx Pacemaker: No HX Cerebrovascular Accident: No Hx Seizures: No Hx Dementia: No Hx Diabetes: No Hx Gastrointestinal Disorders: No Hx Liver Disease: No Hx Genitourinary Disorders: No Hx Sexually Transmitted Disorders: Yes (genital herpes.) Hx Renal Disease (ESRD): No Hx Thyroid Disease: No Hx Human Immunodeficiency Virus (HIV): Yes (since 1990) Hx Hepatitis C: No Hx Depression: Yes (remote hx, declines psych referral) Hx Suicide Attempt: No Hx Bipolar Disorder: No Hx Schizophrenia: No - Patient Surgical History Past Surgical History: Yes Hx Neurologic Surgery: No Hx Cataract Extraction: No Hx Cardiac Surgery: No Hx Lung Surgery: No Hx Breast Surgery: No Hx Breast Biopsy: No Hx Abdominal Surgery: No Hx Appendectomy: No Hx Cholecystectomy: No Hx Genitourinary Surgery: No Hx Section: No Hx Orthopedic Surgery: No Other Surgical History: removal of a growth from L forehead. Anesthesia Reaction: No - PPD History Previous Implant?: Yes Documented Results: Negative w/proof Implanted On Prior R Admission?: Yes Date: 11/29/18 Results: TB (QFT) neg PPD to be Administered?: No - Smoking Cessation Smoking history: Current every day smoker Have you smoked in the past 12 months: Yes Aproximately how many cigarettes per day: 4 Cigars Per Day: 0 Hx Chewing Tobacco Use: No Initiated information on smoking cessation: Yes 'Breaking Loose' booklet given: 08/18/19 - Substances abused Heroin Substance route: Injection Frequency: Daily Amount used: 8 bags Age of first use: 33 Date of last use: 08/17/19 Cocaine Substance route: Injection Frequency: Daily Amount used: 8 bags Age of first use: 53 Date of last use: 08/17/19 Marijuana/Hashish Substance route: Smoking Frequency: Daily Amount used: 4-5 bags Age of first use: 11 Date of last use: 08/17/19 Admission Physical Exam [facility] - Vital Signs Vital Signs: Vital Signs - 24 hr 08/18/19 11:16 Temperature 97.6 F Pulse Rate 76 Respiratory 20 Rate Blood Pressure 108/71 - Physical General Appearance: Yes: No Apparent Distress, Nourished HEENTM: Yes: EOMI, Hearing grossly Normal, Normal ENT Inspection, Normal Voice, Pharynx Normal, Other (L forehead palpable firm mass) Respiratory: Yes: Chest Non-Tender, Lungs Clear, Normal Breath Sounds, No Respiratory Distress, No Accessory Muscle Use Neck: Yes: No masses,lesions,Nodules, Supple Breast: Yes: Breast Exam Deferred Cardiology: Yes: Regular Rhythm, Regular Rate, S1, S2 Abdominal: Yes: Normal Bowel Sounds, Non Tender, Flat, Soft, Other (inguinal hernia) Genitourinary: Yes: Within Normal Limits Back: Yes: Normal Inspection Musculoskeletal: Yes: Muscle weakness, Other (scoliosis) Extremities: Yes: Normal Capillary Refill, Normal Inspection, Tremors Neurological: Yes: household chores II-XII NML intact, Fully Oriented, Alert, Normal Mood/Affect, Normal Response Integumentary: Yes: Clammy, Track Kemp (upper extremities) Lymphatic: Yes: Within Normal Limits - Diagnostic (1) Opioid dependence with withdrawal Current Visit: Yes Status: Acute (2) HIV (human immunodeficiency virus infection) Current Visit: Yes Status: Chronic Qualifiers: HIV symptom status: asymptomatic Qualified Code(s): Z21 - Asymptomatic hum an immunodeficiency virus [HIV] infection status (3) Cocaine abuse Current Visit: Yes Status: Acute (4) Marijuana abuse Current Visit: Yes Status: Chronic (5) Hepatitis C Current Visit: Yes Status: Chronic Qualifiers: Viral hepatitis chronicity: chronic Hepatic coma status: without hepatic coma Qualified Code(s): B18.2 - Chronic viral hepatitis C Cleared for Admission [facility] - Detox or Rehab [facility] Level of Care: Medically Managed Detox Regimen/Protocol: Methadone Claeared for Rehab Admission: No Breathalyzer - Breathalyzer Breathalyzer: 0 Urine Drug Screen - Test Device Lot number: [id number] Expiration date: 10/06/20 - Control Is test valid?: Yes - Results Drug screen NEGATIVE: No Urine drug screen results: THC-Marijuana, PRADEEP-Cocaine, FEN-Fentanyl, MOP-Opiates Inpatient Rehab Admission - Rehab Decision to Admit Inpatient rehab admission?: No
[2019-08-18] MEDS ORDERED: MENTHOL/PHENOL 1 EACH UD MM PRN (12:23)
[2019-08-18] MEDS ORDERED: MAG HYDROX/AL HYDROX/SIMETH 30 ML UNIT-DOSE CUP PO PRN (12:23)
[2019-08-18] MEDS ORDERED: METHADONE HCL 10 MG TABLET (FOR DETOX USE ONLY) PO ONE (12:23)
[2019-08-18] MEDS ORDERED: MAGNESIUM CITRATE 300 ML BOTTLE PO PRN (12:23)
[2019-08-18] MEDS ORDERED: BISMUTH SUBSALICYLATE 524 MG/30 ML UD PO PRN (12:23)
[2019-08-18] MEDS ORDERED: NICOTINE POLACRILEX 2 MG GUM BUC PRN (12:23)
[2019-08-18] MEDS ORDERED: cloNIDine HCL 0.1 MG TABLET PO PRN (12:23)
[2019-08-18] MEDS ORDERED: METHOCARBAMOL 500 MG TABLET PO PRN (12:23)
[2019-08-18] MEDS ORDERED: MAGNESIUM HYDROX 2400MG/30ML ORAL SUSPENSION 30 ML CUP PO PRN (12:23)
[2019-08-18] MEDS ORDERED: ACETAMINOPHEN 325 MG TABLET (FP) PO PRN ×2 (12:23)
[2019-08-18] MEDS ORDERED: IBUPROFEN 400 MG TABLET (FP) PO PRN (12:23)
[2019-08-18] MEDS: THIAMINE HCL 100 MG TABLET (FP) PO SCH (22:24)
[2019-08-18] MEDS: MELATONIN 5 MG TABLETS PO SCH (22:24)
[2019-08-19] MEDS ORDERED: METHADONE HCL 10 MG TABLET (FOR DETOX USE ONLY) ONE (09:01)
[2019-08-19] MEDS ORDERED: METHADONE HCL 5 MG TABLET (FOR DETOX USE ONLY) ONE (09:08)
[2019-08-19] MEDS ORDERED: METHADONE (DETOX) 20 MG, METHADONE (DETOX) 5 MG PO ONE (10:00)
[2019-08-19] MEDS: NICOTINE 7 MG/24 HOURS TOPICAL PATCH TD SCH (10:24)
[2019-08-19] MEDS: PRENATAL VITAMINS W/ FOLIC ACID TABLET (FP) PO SCH (10:24)
[2019-08-19 11:10] LABS: HEMATOCRIT 43.6 % (35.4-49); HEMOGLOBIN 14.4 GM/dL (11.7-16.9); MCH 28.5 pg (25.7-33.7); MCHC 33.1 g/dl (32.0-35.9); MEAN PLT VOLUME 9.8 fl (7.5-11.1); PLATELET COUNT 140 K/MM3 (134-434); RBC 5.07 M/mm3 (4.00-5.60)
[2019-08-19 11:26] LABS: ALBUMIN 3.8 g/dl (3.4-5.0); BILIRUBIN,TOTAL 0.6 mg/dL (0.2-1); BLOOD UREA NITROGEN 18.5 mg/dL (7-18); CALCIUM 9.1 mg/dL (8.5-10.1); POTASSIUM 4.6 mmol/L (3.5-5.1); TOT PROT 8.3 g/dl (6.4-8.2)
--- NOTE | 2019-08-19 11:38 | PN ---
S COWS - Scale Resting Pulse: 0= [place] 80 or Below Sweatin= No chills or Flushing Restless Observation: 1= Difficult to Sit Still Pupil Size: 1= Pupils >than Normal Bone or Joint Aches: 1= Mild Discomfort Runny Nose/ Eye Tearin= Runny Nose/Eyes GI Upset > 30mins: 2= Nausea/Diarrhea Tremor Observation of Outstretched Hands: 2= Slight Tremor Visible Yawning Observation: 1= 1-2x During Session Anxiety or Irritability: 2=Irritable/Anxious Goose Flesh Skin: 0=Smooth Skin COWS Score: 12 S Progress Note (SOAP) Subjective: alert,irritable,anxious,pain in the body and back,tremor Objective: 08/19/19 11:36 Vital Signs Temperature 96.8 F L 08/19/19 11:11 Pulse Rate 73 08/19/19 11:11 Respiratory Rate 16 08/19/19 11:11 Blood Pressure 117/79 08/19/19 11:11 O2 Sat by Pulse Oximetry (%) 98 08/19/19 11:11 Laboratory Last Values WBC 3.0 K/mm3 (4.0-10.0) L 08/19/19 08:00 RBC 5.07 M/mm3 (4.00-5.60) 08/19/19 08:00 Hgb 14.4 GM/dL (11.7-16.9) 08/19/19 08:00 Hct 43.6 % (35.4-49) D 08/19/19 08:00 MCV 86.0 fl (80-96) 08/19/19 08:00 MCH 28.5 pg (25.7-33.7) 08/19/19 08:00 MCHC 33.1 g/dl (32.0-35.9) 08/19/19 08:00 RDW 15.0 % (11.9-15.9) 08/19/19 08:00 Plt Count 140 K/MM3 (134-434) 08/19/19 08:00 MPV 9.8 fl (7.5-11.1) 08/19/19 08:00 Sodium 139 mmol/L (136-145) 08/19/19 08:00 Potassium 4.6 mmol/L (3.5-5.1) 08/19/19 08:00 Chloride 106 mmol/L (98-107) 08/19/19 08:00 Carbon Dioxide 27 mmol/L (21-32) 08/19/19 08:00 Anion Gap 6 MMOL/L (8-16) L 08/19/19 08:00 BUN 18.5 mg/dL (7-18) H 08/19/19 08:00 Creatinine 1.0 mg/dL (0.55-1.3) 08/19/19 08:00 Est GFR (CKD-EPI)AfAm 99.15 08/19/19 08:00 Est GFR (CKD-EPI)NonAf 85.55 08/19/19 08:00 Random Glucose 101 mg/dL (74-106) 08/19/19 08:00 Calcium 9.1 mg/dL (8.5-10.1) 08/19/19 08:00 Total Bilirubin 0.6 mg/dL (0.2-1) 08/19/19 08:00 AST 76 U/L (15-37) H 08/19/19 08:00 ALT 73 U/L (13-61) H 08/19/19 08:00 Alkaline Phosphatase 108 U/L (45-117) 08/19/19 08:00 Total Protein 8.3 g/dl (6.4-8.2) H 08/19/19 08:00 Albumin 3.8 g/dl (3.4-5.0) 08/19/19 08:00 Assessment: 08/19/19 11:38 withdrawal symptom Plan: continue detox methadone regimen spoke with patient's pharmacy [facility] patient has been on medications regular and complied with medications,last taken 08/18/2019 ,has medications at home
[2019-08-19] MEDS: MELATONIN 5 MG TABLETS PO SCH (22:09)
[2019-08-19] MEDS: THIAMINE HCL 100 MG TABLET (FP) PO SCH (22:09)
[2019-08-20] MEDS: RITONAVIR 100 MG TABLET PO SCH (09:00)
[2019-08-20] MEDS ORDERED: METHADONE HCL 10 MG TABLET (FOR DETOX USE ONLY) PO ONE (10:00)
[2019-08-20] MEDS: SULFAMETHOXAZOLE/TRIMETHOPRIM 800MG/160MG D.S. TABLET PO SCH (10:17)
[2019-08-20] MEDS: DARUNAVIR ETHANOLATE 800 MG TAB PO SCH (10:17)
[2019-08-20] MEDS: NICOTINE 7 MG/24 HOURS TOPICAL PATCH TD SCH (10:19)
[2019-08-20] MEDS: PRENATAL VITAMINS W/ FOLIC ACID TABLET (FP) PO SCH (10:19)
[2019-08-20] MEDS: DOLUTEGRAVIR SODIUM 50 MG TABLET (NON-FORMULARY) PO SCH (10:19)
--- NOTE | 2019-08-20 12:28 | PN ---
BHS COWS - Scale Resting Pulse: 0= [place] 80 or Below Sweatin= Chills/Flushing Restless Observation: 3= Extraneous Movement Pupil Size: 0= Normal to Room Light Bone or Joint Aches: 2= Severe Diffuse Aches Runny Nose/ Eye Tearin= None GI Upset > 30mins: 0= None Tremor Observation of Outstretched Hands: 0= None Yawning Observation: 0= None Anxiety or Irritability: 0= None Goose Flesh Skin: 0=Smooth Skin COWS Score: 6 BHS Progress Note (SOAP) Subjective: c/o anxiety cold sweats slight tremors slight intermittent sleep Objective: 08/20/19 12:26 Vital Signs - 24 hr 08/19/19 08/19/19 08/19/19 13:05 16:40 20:30 Temperature 97.1 F L 97.7 F Pulse Rate 59 L 53 L Respiratory 16 18 Rate Blood Pressure 116/70 123/89 O2 Sat by Pulse 97 98 Oximetry (%) 08/19/19 08/20/19 08/20/19 20:40 06:14 09:27 Temperature 98 F 98.7 F 97.1 F L Pulse Rate 68 60 69 Respiratory 28 H 18 18 Rate Blood Pressure 133/93 128/88 113/65 O2 Sat by Pulse 98 97 Oximetry (%) Laboratory Tests 08/18/19 08/19/19 08/19/19 13:15 08:00 08:00 WBC 3.0 L RBC 5.07 Hgb 14.4 Hct 43.6 D MCV 86.0 MCH 28.5 MCHC 33.1 RDW 15.0 Plt Count 140 MPV 9.8 Sodium Potassium Chloride Carbon Dioxide Anion Gap BUN Creatinine Est GFR (CKD-EPI)AfAm Est GFR (CKD-EPI)NonAf Random Glucose Calcium Total Bilirubin AST ALT Alkaline Phosphatase Total Protein Albumin Syphilis Serology Non-reactive COVID-19 (JORGE) Not detected 08/19/19 08:00 WBC RBC Hgb Hct MCV MCH MCHC RDW Plt Count MPV Sodium 139 Potassium 4.6 Chloride 106 Carbon Dioxide 27 Anion Gap 6 L BUN 18.5 H Creatinine 1.0 Est GFR (CKD-EPI)AfAm 99.15 Est GFR (CKD-EPI)NonAf 85.55 Random Glucose 101 Calcium 9.1 Total Bilirubin 0.6 AST 76 H ALT 73 H Alkaline Phosphatase 108 Total Protein 8.3 H Albumin 3.8 Syphilis Serology COVID-19 (JORGE) covid -19 negative alert o x 3 nad oob ambulating with steady gait 08/20/19 12:27 Assessment: 08/20/19 12:27 mild withdrawal sx Plan: continue detox increase po fluids maintain safety
[2019-08-20] MEDS: THIAMINE HCL 100 MG TABLET (FP) PO SCH (21:56)
[2019-08-20] MEDS: MELATONIN 5 MG TABLETS PO SCH (21:56)
[2019-08-21] MEDS: RITONAVIR 100 MG TABLET PO SCH (08:52)
[2019-08-21] MEDS ORDERED: METHADONE HCL 10 MG TABLET (FOR DETOX USE ONLY) ONE (09:08)
[2019-08-21] MEDS ORDERED: METHADONE HCL 5 MG TABLET (FOR DETOX USE ONLY) ONE (09:09)
[2019-08-21] MEDS: DOLUTEGRAVIR SODIUM 50 MG TABLET (NON-FORMULARY) PO SCH (09:45)
[2019-08-21] MEDS: DARUNAVIR ETHANOLATE 800 MG TAB PO SCH (09:45)
[2019-08-21] MEDS: SULFAMETHOXAZOLE/TRIMETHOPRIM 800MG/160MG D.S. TABLET PO SCH (09:45)
[2019-08-21] MEDS: PRENATAL VITAMINS W/ FOLIC ACID TABLET (FP) PO SCH (09:46)
[2019-08-21] MEDS: NICOTINE 7 MG/24 HOURS TOPICAL PATCH TD SCH (09:46)
[2019-08-21] MEDS ORDERED: METHADONE (DETOX) 10 MG, METHADONE (DETOX) 5 MG PO ONE (10:00)
--- NOTE | 2019-08-21 10:06 | PN ---
BHS COWS - Scale Resting Pulse: 0= DE 80 or Below Sweatin= Streaming Sweat (reports profuse sweating during the night) Restless Observation: 0= Sits Still Pupil Size: 0= Normal to Room Light Bone or Joint Aches: 4=Acute Joint/Muscle Pain (Back pain to right lateral side) Runny Nose/ Eye Tearin= None GI Upset > 30mins: 0= None Tremor Observation of Outstretched Hands: 0= None Yawning Observation: 0= None Anxiety or Irritability: 1=Feels Anxious/Irritable Goose Flesh Skin: 0=Smooth Skin COWS Score: 9 BHS Progress Note (SOAP) Subjective: Patient seen this AM for evaluation. Found in Day Room. Concerned about his Rehab placement. Objective: General: anxious HEENTM: Bony prominence left forehead, PERRLA Neck: supple Lung: no use of accessory muscles ABD:+BS MSK: weight bearing and ambulation with cane Neuro: Cn 2-12 intact, A+O x3, Muscle strength equal bilaterally 08/21/19 10:09 08/21/19 10:11 Vital Signs Period Temp Pulse Resp BP Sys/Lincoln Pulse Ox Last 24 Hr 98.0 F-98.4 F 61-89 14-20 100-114/62-81 91-98 Assessment: Withdrawal from opiates, 08/21/19 10:11 08/21/19 10:11 V Plan: continue with detox treatment Maintain hydration & nutrition Referred to counselor for rehab placement concerns.
[2019-08-21] MEDS: MELATONIN 5 MG TABLETS PO SCH (22:29)
[2019-08-21] MEDS: THIAMINE HCL 100 MG TABLET (FP) PO SCH (22:29)
[2019-08-22] MEDS: RITONAVIR 100 MG TABLET PO SCH (09:16)
[2019-08-22] MEDS: SULFAMETHOXAZOLE/TRIMETHOPRIM 800MG/160MG D.S. TABLET PO SCH (09:56)
[2019-08-22] MEDS: NICOTINE 7 MG/24 HOURS TOPICAL PATCH TD SCH (09:57)
[2019-08-22] MEDS: DARUNAVIR ETHANOLATE 800 MG TAB PO SCH (09:57)
[2019-08-22] MEDS: DOLUTEGRAVIR SODIUM 50 MG TABLET (NON-FORMULARY) PO SCH (09:57)
[2019-08-22] MEDS: PRENATAL VITAMINS W/ FOLIC ACID TABLET (FP) PO SCH (09:57)
[2019-08-22] MEDS ORDERED: AZITHROMYCIN 600 MG TABLET PO SCH (10:00)
[2019-08-22] MEDS ORDERED: METHADONE HCL 10 MG TABLET (FOR DETOX USE ONLY) PO ONE (10:00)
[2019-08-22] MEDS ORDERED: IBUPROFEN 600 MG TABLET (FP) PO PRN (13:16)
--- NOTE | 2019-08-22 13:17 | PN ---
BHS COWS - Scale Resting Pulse: 0= DE 80 or Below Sweatin= Chills/Flushing Restless Observation: 0= Sits Still Pupil Size: 1= Pupils >than Normal Bone or Joint Aches: 1= Mild Discomfort Runny Nose/ Eye Tearin= Nasal Congestion GI Upset > 30mins: 0= None Tremor Observation of Outstretched Hands: 2= Slight Tremor Visible Yawning Observation: 0= None Anxiety or Irritability: 1=Feels Anxious/Irritable Goose Flesh Skin: 0=Smooth Skin COWS Score: 7 BHS Progress Note (SOAP) Subjective: Patient remains anxious about whether or not he will be transferred to rehab. Objective: 08/22/19 13:21 Vital Signs Period Temp Pulse Resp BP Sys/Lincoln Pulse Ox Last 24 Hr 97.8 F-98.4 F 65-84 16-18 95-119/59-73 95-98 Laboratory Last Values WBC 3.0 K/mm3 (4.0-10.0) L 08/19/19 08:00 RBC 5.07 M/mm3 (4.00-5.60) 08/19/19 08:00 Hgb 14.4 GM/dL (11.7-16.9) 08/19/19 08:00 Hct 43.6 % (35.4-49) D 08/19/19 08:00 MCV 86.0 fl (80-96) 08/19/19 08:00 MCH 28.5 pg (25.7-33.7) 08/19/19 08:00 MCHC 33.1 g/dl (32.0-35.9) 08/19/19 08:00 RDW 15.0 % (11.9-15.9) 08/19/19 08:00 Plt Count 140 K/MM3 (134-434) 08/19/19 08:00 MPV 9.8 fl (7.5-11.1) 08/19/19 08:00 Sodium 139 mmol/L (136-145) 08/19/19 08:00 Potassium 4.6 mmol/L (3.5-5.1) 08/19/19 08:00 Chloride 106 mmol/L (98-107) 08/19/19 08:00 Carbon Dioxide 27 mmol/L (21-32) 08/19/19 08:00 Anion Gap 6 MMOL/L (8-16) L 08/19/19 08:00 BUN 18.5 mg/dL (7-18) H 08/19/19 08:00 Creatinine 1.0 mg/dL (0.55-1.3) 08/19/19 08:00 Est GFR (CKD-EPI)AfAm 99.15 08/19/19 08:00 Est GFR (CKD-EPI)NonAf 85.55 08/19/19 08:00 Random Glucose 101 mg/dL (74-106) 08/19/19 08:00 Calcium 9.1 mg/dL (8.5-10.1) 08/19/19 08:00 Total Bilirubin 0.6 mg/dL (0.2-1) 08/19/19 08:00 AST 76 U/L (15-37) H 08/19/19 08:00 ALT 73 U/L (13-61) H 08/19/19 08:00 Alkaline Phosphatase 108 U/L (45-117) 08/19/19 08:00 Total Protein 8.3 g/dl (6.4-8.2) H 08/19/19 08:00 Albumin 3.8 g/dl (3.4-5.0) 08/19/19 08:00 Syphilis Serology Non-reactive (NONREACTIVE) 08/19/19 08:00 COVID-19 (JORGE) Not detected (Not Detected) 08/18/19 13:15 08/22/19 13:24 General: anxious HEENTM: Bony prominence left forehead, PERRLA, EOMI Neck: supple Lung: no use of accessory muscles, respirations unlabored ABD:+BS MSK: weight bearing, steady gait Neuro: Cn 2-12 intact, A+O x4, Muscle strength equal bilaterally Assessment: withdrawal from opiates Continue detox Reassured patient that every effort will be made to arrange for rehab after detox is completed. 08/22/19 13:25
[2019-08-22 15:36] VITALS: TEMP 98
[2019-08-22 15:38] VITALS: BP 102/70; PULSE 69
--- NOTE | 2019-08-22 15:53 | DS ---
[facility] Detox Discharge Summary Admission Date: 08/18/19 Discharge Date: 08/22/19 - History Present History: Cannabis Dependence, Cocaine Dependence, Opioid Dependence Pertinent Past History: HIV+/AIDS Hep C Genital Herpes Inguinal Hernia Removal of Growth, Left Forehead Depression(no meds) - Physical Exam Results Vital Signs: Vital Signs Temperature 98.0 F 08/22/19 12:40 Pulse Rate 69 08/22/19 12:40 Respiratory Rate 20 08/22/19 12:40 Blood Pressure 102/70 08/22/19 12:40 O2 Sat by Pulse Oximetry (%) 95 08/22/19 12:40 VSS Alert o x 3 nad oob ambulating with steady gait Pertinent Admission Physical Exam Findings: Laboratory Tests 08/18/19 08/19/19 08/19/19 13:15 08:00 08:00 WBC 3.0 L RBC 5.07 Hgb 14.4 Hct 43.6 D MCV 86.0 MCH 28.5 MCHC 33.1 RDW 15.0 Plt Count 140 MPV 9.8 Sodium Potassium Chloride Carbon Dioxide Anion Gap BUN Creatinine Est GFR (CKD-EPI)AfAm Est GFR (CKD-EPI)NonAf Random Glucose Calcium Total Bilirubin AST ALT Alkaline Phosphatase Total Protein Albumin Syphilis Serology Non-reactive COVID-19 (JORGE) Not detected 08/19/19 08:00 WBC RBC Hgb Hct MCV MCH MCHC RDW Plt Count MPV Sodium 139 Potassium 4.6 Chloride 106 Carbon Dioxide 27 Anion Gap 6 L BUN 18.5 H Creatinine 1.0 Est GFR (CKD-EPI)AfAm 99.15 Est GFR (CKD-EPI)NonAf 85.55 Random Glucose 101 Calcium 9.1 Total Bilirubin 0.6 AST 76 H ALT 73 H Alkaline Phosphatase 108 Total Protein 8.3 H Albumin 3.8 Syphilis Serology COVID-19 (JORGE) covid-19 not detected - Treatment Hospital Course: Detox Protocol Followed, Detoxed Safely, Responded well, Discharged Condition Good, Rehab Referral Accepted Patient has Accepted a Rehab Referral to: [facility] - Medication Discharge Medications: Ambulatory Orders Azithromycin [Zithromax 600mg Tablets -] 1,200 mg PO WEEKLY #10 tablet 07/08/13 Darunavir Ethanolate [Prezista -] 800 mg PO DAILY #30 tablet 07/08/13 Dolutegravir Sodium [Tivicay] 50 mg PO DAILY #30 tablet 07/08/13 Sulfamethoxazole/Trimethoprim [Bactrim DS -] 1 tab PO DAILY 11/28/18 - Diagnosis (1) Cocaine dependence Status: Acute Qualifiers: Substance use status: uncomplicated Qualified Code(s): F14.20 - Cocaine dependence, uncomplicated (2) Opioid dependence with withdrawal Status: Acute (3) Cannabis dependence Status: Acute (4) Acquired immune deficiency syndrome (AIDS) Status: Chronic (5) Hepatitis C Status: Chronic Qualifiers: Viral hepatitis chronicity: chronic Hepatic coma status: without hepatic coma Qualified Code(s): B18.2 - Chronic viral hepatitis C - AMA Did Patient Leave Against Medical Advice: No
[2019-08-23] MEDS ORDERED: METHADONE HCL 5 MG TABLET (FOR DETOX USE ONLY) PO ONE (06:00)
== END 2019-08-22 15:45 | disposition other institution (70) | DRG 773 ==
LOC: YASAS 10:16 → Y5N DETOX 12:35
PROVIDERS: ADMIT Allergy & Immunology; ATTEND Allergy & Immunology
PROC: HZ2ZZZZ Detoxification Services for Substance Abuse Treatment (ICD-10-PCS; principal; 2019-08-18)
DX: F11.23 Opioid dependence with withdrawal (principal); F14.20 Cocaine dependence, uncomplicated; F12.20 Cannabis dependence, uncomplicated; F17.210 Nicotine dependence, cigarettes, uncomplicated; B20 Human immunodeficiency virus [HIV] disease; J45.909 Unspecified asthma, uncomplicated; M41.9 Scoliosis, unspecified; B18.2 Chronic viral hepatitis C; Z86.19 Personal history of other infectious and parasitic diseases; Z91.14 Patient's other noncompliance with medication regimen; Z99.89 Dependence on other enabling machines and devices
CPT/HCPCS: 36415; 80053; 85027; 86780; U0003

== ENCOUNTER 2019-08-22 15:17 | Inpatient (IN) | payer OTHER ==
[2019-08-22] MEDS ORDERED: MAG HYDROX/AL HYDROX/SIMETH 30 ML UNIT-DOSE CUP PO PRN (15:23)
[2019-08-22] MEDS ORDERED: NICOTINE POLACRILEX 2 MG GUM BUC PRN (15:23)
[2019-08-22] MEDS ORDERED: ACETAMINOPHEN 325 MG TABLET (FP) PO PRN (15:23)
[2019-08-22] MEDS ORDERED: P-EPHED 60MG/TRIPROLIDI 2.5MG TABLET PO PRN (15:23)
[2019-08-22] MEDS ORDERED: LOPERAMIDE HCL 2 MG CAPSULE PO PRN (15:23)
[2019-08-22] MEDS ORDERED: guaiFENesin 200 MG/10 ML 10 ML UNIT-DOSE CUPS PO PRN (15:23)
[2019-08-22] MEDS ORDERED: MAGNESIUM CITRATE 300 ML BOTTLE PO PRN (15:23)
[2019-08-22] MEDS ORDERED: MENTHOL/PHENOL 1 EACH UD MM PRN (15:23)
[2019-08-22] MEDS ORDERED: MAGNESIUM HYDROX 2400MG/30ML ORAL SUSPENSION 30 ML CUP PO PRN (15:23)
--- NOTE | 2019-08-22 15:29 | DS ---
[facility] Detox Discharge Summary Admission Date: 08/22/19 - History Present History: Cocaine Dependence, Opioid Dependence Pertinent Past History: 53 year old man with heroin dependence presents for detox. He reports OD sometime in March of this year. Patient has HIV, he reports non-compliance with meds x 4 months. He has been instructed to see PCP post discharge to restart HAART, he verbalized understanding. - Physical Exam Results Pertinent Admission Physical Exam Findings: General: anxious HEENTM: Bony prominence left forehead, PERRLA, EOMI Neck: supple Lung: no use of accessory muscles, respirations unlabored ABD:+BS MSK: weight bearing, steady gait Neuro: Cn 2-12 intact, A+O x4, Muscle strength equal bilaterally - Treatment Hospital Course: Detox Protocol Followed, Detoxed Safely, Responded well, Discharged Condition Good (medically stable for discharge.) Patient has Accepted a Rehab Referral to: [facility] - Medication Discharge Medications: Ambulatory Orders Azithromycin [Zithromax 600mg Tablets -] 1,200 mg PO WEEKLY #10 tablet 07/08/13 Darunavir Ethanolate [Prezista -] 800 mg PO DAILY #30 tablet 07/08/13 Dolutegravir Sodium [Tivicay] 50 mg PO DAILY #30 tablet 07/08/13 Ritonavir [Norvir -] 100 mg PO DAILY #30 tab 07/08/13 Emtricitabine/Tenofovir [Truvada -] 200 - 300 tab PO DAILY 11/28/18 Sulfamethoxazole/Trimethoprim [Bactrim DS -] 1 tab PO DAILY 11/28/18 - Diagnosis (1) Cocaine abuse Current Visit: No Status: Chronic (2) Opioid dependence with withdrawal Current Visit: No Status: Chronic - AMA Did Patient Leave Against Medical Advice: No
--- NOTE | 2019-08-22 15:42 | HP ---
[facility] Rehab Assess/Revision - Findings Detox History & Physical reviewed: Yes Concur with findings: Yes Comments/Additional Findings: Pt completed detox on and discharged to rehab today. Inpatient Rehab Admission - Rehab Decision to Admit Inpatient rehab admission?: Yes - Initial Determination Are CD services needed?: Yes Free of communicable disease: Yes Not in need of hospitalization: Yes - Rehab Admission Criteria Previous failed treatment: Yes Poor recovery environment: Yes Comorbidities: Yes Lacks judgement: Yes Patient is meeting Inpatient Rehab admission criteria:: Yes
[2019-08-22] MEDS: THIAMINE HCL 100 MG TABLET (FP) PO SCH (21:59)
[2019-08-22] MEDS: MELATONIN 5 MG TABLETS PO SCH (21:59)
[2019-08-23] MEDS: PRENATAL VITAMINS W/ FOLIC ACID TABLET (FP) PO SCH (09:37)
[2019-08-23] MEDS: NICOTINE 7 MG/24 HOURS TOPICAL PATCH TD SCH (09:37)
[2019-08-23] MEDS: DARUNAVIR ETHANOLATE 800 MG TAB PO SCH (11:22)
[2019-08-23] MEDS: SULFAMETHOXAZOLE/TRIMETHOPRIM 800MG/160MG D.S. TABLET PO SCH (11:22)
[2019-08-23] MEDS: DOLUTEGRAVIR SODIUM 50 MG TABLET (NON-FORMULARY) PO SCH (11:23)
[2019-08-23] MEDS: RITONAVIR 100 MG TABLET PO SCH (11:23)
[2019-08-23] MEDS: MELATONIN 5 MG TABLETS PO SCH (21:12)
[2019-08-23] MEDS: THIAMINE HCL 100 MG TABLET (FP) PO SCH (21:12)
[2019-08-24] MEDS: hydrOXYzine PAMOATE 25 MG CAPSULE (FP) PO PRN ×2 (00:56→21:56)
[2019-08-24] MEDS ORDERED: PT OWN MED DRAWER 7, Y5N ONE ×2 (05:17→07:35)
[2019-08-24] MEDS: DOLUTEGRAVIR SODIUM 50 MG TABLET (NON-FORMULARY) PO SCH (07:31)
[2019-08-24] MEDS: DARUNAVIR ETHANOLATE 800 MG TAB PO SCH (07:33)
[2019-08-24] MEDS: RITONAVIR 100 MG TABLET PO SCH (07:36)
[2019-08-24] MEDS: IBUPROFEN 400 MG TABLET (FP) PO PRN ×3 (08:35→21:58)
[2019-08-24] MEDS: SULFAMETHOXAZOLE/TRIMETHOPRIM 800MG/160MG D.S. TABLET PO SCH (09:22)
[2019-08-24] MEDS: NICOTINE 7 MG/24 HOURS TOPICAL PATCH TD SCH (09:22)
[2019-08-24] MEDS: PRENATAL VITAMINS W/ FOLIC ACID TABLET (FP) PO SCH (09:22)
[2019-08-24] MEDS: THIAMINE HCL 100 MG TABLET (FP) PO SCH (21:57)
[2019-08-24] MEDS: MELATONIN 5 MG TABLETS PO SCH (21:57)
[2019-08-25] MEDS ORDERED: PT OWN MED DRAWER 7, Y5N ONE (05:13)
[2019-08-25] MEDS: IBUPROFEN 400 MG TABLET (FP) PO PRN ×3 (06:25→21:20)
[2019-08-25] MEDS: DARUNAVIR ETHANOLATE 800 MG TAB PO SCH (07:35)
[2019-08-25] MEDS: RITONAVIR 100 MG TABLET PO SCH (07:36)
[2019-08-25] MEDS: DOLUTEGRAVIR SODIUM 50 MG TABLET (NON-FORMULARY) PO SCH (07:36)
[2019-08-25] MEDS: NICOTINE 7 MG/24 HOURS TOPICAL PATCH TD SCH (09:22)
[2019-08-25] MEDS: PRENATAL VITAMINS W/ FOLIC ACID TABLET (FP) PO SCH (09:22)
[2019-08-25] MEDS: SULFAMETHOXAZOLE/TRIMETHOPRIM 800MG/160MG D.S. TABLET PO SCH (09:22)
[2019-08-25] MEDS: MELATONIN 5 MG TABLETS PO SCH (21:16)
[2019-08-25] MEDS: hydrOXYzine PAMOATE 25 MG CAPSULE (FP) PO PRN (21:17)
[2019-08-25] MEDS: THIAMINE HCL 100 MG TABLET (FP) PO SCH (22:29)
[2019-08-26] MEDS ORDERED: PT OWN MED DRAWER 7, Y5N ONE ×2 (03:24→07:51)
[2019-08-26] MEDS: RITONAVIR 100 MG TABLET PO SCH (07:49)
[2019-08-26] MEDS: DARUNAVIR ETHANOLATE 800 MG TAB PO SCH (07:49)
[2019-08-26] MEDS: DOLUTEGRAVIR SODIUM 50 MG TABLET (NON-FORMULARY) PO SCH (07:50)
[2019-08-26] MEDS: IBUPROFEN 400 MG TABLET (FP) PO PRN (07:51)
[2019-08-26] MEDS ORDERED: AZITHROMYCIN 600 MG TABLET PO ONE (10:00)
[2019-08-26] MEDS: NICOTINE 7 MG/24 HOURS TOPICAL PATCH TD SCH (10:03)
[2019-08-26] MEDS: PRENATAL VITAMINS W/ FOLIC ACID TABLET (FP) PO SCH (10:03)
[2019-08-26] MEDS: SULFAMETHOXAZOLE/TRIMETHOPRIM 800MG/160MG D.S. TABLET PO SCH (11:50)
--- NOTE | 2019-08-26 13:10 | PN ---
S Progress Note Note: Patient c/o LBP, symptoms chronic. Describes pain as dull ache, non-radiating, level 5/10. Vital Signs Temperature 98.0 F 08/26/19 07:00 Pulse Rate 89 08/26/19 07:00 Respiratory Rate 16 08/26/19 07:00 Blood Pressure 117/74 08/26/19 07:00 O2 Sat by Pulse Oximetry (%) 100 08/26/19 07:00 PE alert and oriented x 3 skin warm and dry +perrla eoms intact bl MS: + tenderness at right lumbar area, +mild kyphosis of spine ext full rom, amb ad cory A/P LBP will start Lidocaine patch daily and remove hs monitor clinically
[2019-08-26] MEDS: LIDOCAINE 5% TOPICAL PATCH TP SCH (13:50)
[2019-08-26] MEDS: MELATONIN 5 MG TABLETS PO SCH (21:26)
[2019-08-26] MEDS: THIAMINE HCL 100 MG TABLET (FP) PO SCH (21:26)
[2019-08-26] MEDS: hydrOXYzine PAMOATE 25 MG CAPSULE (FP) PO PRN (21:27)
[2019-08-26] MEDS: LIDOCAINE PATCH REMOVAL MC SCH (21:27)
[2019-08-27] MEDS: IBUPROFEN 400 MG TABLET (FP) PO PRN ×2 (00:48→08:24)
[2019-08-27] MEDS ORDERED: PT OWN MED DRAWER 7, Y5N ONE (03:08)
[2019-08-27] MEDS: DOLUTEGRAVIR SODIUM 50 MG TABLET (NON-FORMULARY) PO SCH (08:21)
[2019-08-27] MEDS: RITONAVIR 100 MG TABLET PO SCH (08:21)
[2019-08-27] MEDS: DARUNAVIR ETHANOLATE 800 MG TAB PO SCH (08:23)
[2019-08-27] MEDS: SULFAMETHOXAZOLE/TRIMETHOPRIM 800MG/160MG D.S. TABLET PO SCH (09:46)
[2019-08-27] MEDS: NICOTINE 7 MG/24 HOURS TOPICAL PATCH TD SCH (09:47)
[2019-08-27] MEDS: PRENATAL VITAMINS W/ FOLIC ACID TABLET (FP) PO SCH (09:47)
[2019-08-27] MEDS: LIDOCAINE 5% TOPICAL PATCH TP SCH (09:47)
[2019-08-27] MEDS: IBUPROFEN 600 MG TABLET (FP) PO PRN ×3 (13:05→21:33)
[2019-08-27] MEDS: LIDOCAINE PATCH REMOVAL MC SCH (21:32)
[2019-08-27] MEDS: THIAMINE HCL 100 MG TABLET (FP) PO SCH (21:32)
[2019-08-27] MEDS: MELATONIN 5 MG TABLETS PO SCH (21:32)
[2019-08-28] MEDS ORDERED: PT OWN MED DRAWER 7, Y5N ONE (03:25)
[2019-08-28] MEDS: RITONAVIR 100 MG TABLET PO SCH (08:10)
[2019-08-28] MEDS: DARUNAVIR ETHANOLATE 800 MG TAB PO SCH (08:10)
[2019-08-28] MEDS: IBUPROFEN 600 MG TABLET (FP) PO PRN ×2 (08:11→17:18)
[2019-08-28] MEDS: DOLUTEGRAVIR SODIUM 50 MG TABLET (NON-FORMULARY) PO SCH (08:11)
[2019-08-28] MEDS: SULFAMETHOXAZOLE/TRIMETHOPRIM 800MG/160MG D.S. TABLET PO SCH (09:27)
[2019-08-28] MEDS: LIDOCAINE 5% TOPICAL PATCH TP SCH (09:27)
[2019-08-28] MEDS: NICOTINE 7 MG/24 HOURS TOPICAL PATCH TD SCH (09:27)
[2019-08-28] MEDS: PRENATAL VITAMINS W/ FOLIC ACID TABLET (FP) PO SCH (09:27)
[2019-08-28] MEDS: MELATONIN 5 MG TABLETS PO SCH (21:20)
[2019-08-28] MEDS: THIAMINE HCL 100 MG TABLET (FP) PO SCH (21:20)
[2019-08-28] MEDS: hydrOXYzine PAMOATE 25 MG CAPSULE (FP) PO PRN (21:20)
[2019-08-28] MEDS: LIDOCAINE PATCH REMOVAL MC SCH (21:21)
[2019-08-28] MEDS: METHYL SALICYLATE/MENTHOL OINT 30 GM TUBE TP SCH (21:43)
[2019-08-29] MEDS: IBUPROFEN 600 MG TABLET (FP) PO PRN ×3 (06:02→21:04)
[2019-08-29] MEDS: PRENATAL VITAMINS W/ FOLIC ACID TABLET (FP) PO SCH (09:28)
[2019-08-29] MEDS: NICOTINE 7 MG/24 HOURS TOPICAL PATCH TD SCH (09:28)
[2019-08-29] MEDS: RITONAVIR 100 MG TABLET PO SCH (09:28)
[2019-08-29] MEDS: SULFAMETHOXAZOLE/TRIMETHOPRIM 800MG/160MG D.S. TABLET PO SCH (09:28)
[2019-08-29] MEDS: DARUNAVIR ETHANOLATE 800 MG TAB PO SCH (09:29)
[2019-08-29] MEDS: LIDOCAINE 5% TOPICAL PATCH TP SCH (09:29)
[2019-08-29] MEDS: DOLUTEGRAVIR SODIUM 50 MG TABLET (NON-FORMULARY) PO SCH (09:30)
[2019-08-29] MEDS: THIAMINE HCL 100 MG TABLET (FP) PO SCH (21:03)
[2019-08-29] MEDS: hydrOXYzine PAMOATE 25 MG CAPSULE (FP) PO PRN (21:05)
[2019-08-29] MEDS: MELATONIN 5 MG TABLETS PO SCH (21:05)
[2019-08-29] MEDS: METHYL SALICYLATE/MENTHOL OINT 30 GM TUBE TP SCH (21:06)
[2019-08-29] MEDS: LIDOCAINE PATCH REMOVAL MC SCH (21:06)
[2019-08-30 06:55] VITALS: TEMP 98.2
[2019-08-30] MEDS: IBUPROFEN 600 MG TABLET (FP) PO PRN ×3 (07:59→21:02)
[2019-08-30] MEDS ORDERED: PT OWN MED DRAWER 7, Y5N ONE ×2 (08:38→10:43)
[2019-08-30] MEDS: DOLUTEGRAVIR SODIUM 50 MG TABLET (NON-FORMULARY) PO SCH (09:28)
[2019-08-30] MEDS: SULFAMETHOXAZOLE/TRIMETHOPRIM 800MG/160MG D.S. TABLET PO SCH (09:28)
[2019-08-30] MEDS: LIDOCAINE 5% TOPICAL PATCH TP SCH (09:28)
[2019-08-30] MEDS: PRENATAL VITAMINS W/ FOLIC ACID TABLET (FP) PO SCH (09:28)
[2019-08-30] MEDS: DARUNAVIR ETHANOLATE 800 MG TAB PO SCH (09:28)
[2019-08-30] MEDS: NICOTINE 7 MG/24 HOURS TOPICAL PATCH TD SCH (09:29)
[2019-08-30] MEDS: RITONAVIR 100 MG TABLET PO SCH (09:29)
--- NOTE | 2019-08-30 14:59 | PN ---
[facility] Progress Note Note: Patient is a 53 year old male with h/o opiod dependence, scoliosis and HIV+. Patient is scheduled for discharge tomorrow 08/31/2019. He is medically stable at this time and denies SI/HI. Ambulatory Orders Azithromycin [Zithromax 600mg Tablets -] 1,200 mg PO WEEKLY #10 tablet 08/29/19 Darunavir Ethanolate [Prezista -] 800 mg PO DAILY #30 tablet 08/29/19 Dolutegravir Sodium [Tivicay] 50 mg PO DAILY #30 tablet 08/29/19 Ritonavir [Norvir -] 100 mg PO DAILY@0800 #30 tab 08/29/19 Sulfamethoxazole/Trimethoprim [Bactrim DS -] 1 tab PO DAILY #30 tablet 08/29/19 Vital Signs Temperature 98.2 F 08/30/19 06:54 Pulse Rate 78 08/30/19 06:54 Respiratory Rate 18 08/30/19 06:54 Blood Pressure 127/91 08/30/19 06:54 O2 Sat by Pulse Oximetry (%) 100 08/30/19 06:54 PE alert and oriented x 3 skin warm and dry EOMS intact bl neck supple, no jvd in no apparent distress ext full rom, amb ad cory A/P opiod dependence HIV+ (noncompliant with meds) Patient for discharge tomorrow morning. 08/31/2019 Aftercare arranged for [facility], 09/13/2019
[2019-08-30] MEDS: THIAMINE HCL 100 MG TABLET (FP) PO SCH (21:00)
[2019-08-30] MEDS: MELATONIN 5 MG TABLETS PO SCH (21:00)
[2019-08-30] MEDS: hydrOXYzine PAMOATE 25 MG CAPSULE (FP) PO PRN (21:00)
[2019-08-30] MEDS: LIDOCAINE PATCH REMOVAL MC SCH (21:01)
[2019-08-30] MEDS: METHYL SALICYLATE/MENTHOL OINT 30 GM TUBE TP SCH (21:01)
[2019-08-31 06:44] VITALS: BP 129/80; PULSE 74
[2019-08-31] MEDS ORDERED: PT OWN MED DRAWER 7, Y5N ONE (08:07)
[2019-08-31] MEDS: SULFAMETHOXAZOLE/TRIMETHOPRIM 800MG/160MG D.S. TABLET PO SCH (09:01)
[2019-08-31] MEDS: RITONAVIR 100 MG TABLET PO SCH (09:01)
[2019-08-31] MEDS: PRENATAL VITAMINS W/ FOLIC ACID TABLET (FP) PO SCH (09:01)
[2019-08-31] MEDS: NICOTINE 7 MG/24 HOURS TOPICAL PATCH TD SCH (09:01)
[2019-08-31] MEDS: LIDOCAINE 5% TOPICAL PATCH TP SCH (09:01)
[2019-08-31] MEDS: DARUNAVIR ETHANOLATE 800 MG TAB PO SCH (09:02)
[2019-08-31] MEDS: DOLUTEGRAVIR SODIUM 50 MG TABLET (NON-FORMULARY) PO SCH (09:02)
--- NOTE | 2019-08-31 09:18 | DS ---
[facility] Rehab Discharge Summary - [facility] Rehab Discharge Summary Admission Date: 08/22/19 Discharge Date: 08/31/19 - History Present History: Cocaine dependence, Opioid dependence Pertinent Past History: HIV positive, remote h/o depression - Discharge Physical Exam Vital Signs: Vital Signs Temperature 98.2 F 08/30/19 06:54 Pulse Rate 74 08/31/19 06:42 Respiratory Rate 16 08/31/19 06:42 Blood Pressure 129/80 08/31/19 06:42 O2 Sat by Pulse Oximetry (%) 97 08/31/19 06:42 Pertinent Admission Physical Exam Findings: Admitted to detox initially with withdrawal sxs Stable this morning with no apparent distress - Treatment Discharge Condition: Outpatient referral accepted - Medication Discharge Medications: Ambulatory Orders Azithromycin [Zithromax 600mg Tablets -] 1,200 mg PO WEEKLY #10 tablet 08/29/19 Darunavir Ethanolate [Prezista -] 800 mg PO DAILY #30 tablet 08/29/19 Dolutegravir Sodium [Tivicay] 50 mg PO DAILY #30 tablet 08/29/19 Ritonavir [Norvir -] 100 mg PO DAILY@0800 #30 tab 08/29/19 Sulfamethoxazole/Trimethoprim [Bactrim DS -] 1 tab PO DAILY #30 tablet 08/29/19 - Medication-Assisted Treatment (MAT) Medication-Assisted Treatment (MAT): No - Discharge Instructions Diet, activity, other medical instructions: Diet: No restrictions Activity: No restrictions Other medical instructions: Follow up with PCP within 14-30 days - Diagnosis (1) Cocaine dependence Current Visit: Yes Status: Acute Qualifiers: Substance use status: uncomplicated Qualified Code(s): F14.20 - Cocaine dependence, uncomplicated (2) HIV (human immunodeficiency virus infection) Current Visit: Yes Status: Chronic Qualifiers: HIV symptom status: asymptomatic Qualified Code(s): Z21 - Asymptomatic human immunodeficiency virus [HIV] infection status - AMA Did Patient Leave Against Medical Advice: No Additional Comments: Patient admitted to [facility]
[2019-09-02] MEDS ORDERED: AZITHROMYCIN 600 MG TABLET PO ONE (10:00)
--- NOTE | 2019-10-18 16:00 | BHS.RME ---
Substance Use & Tx History - Substance Use History Heroin Substance amount: 5 bags Frequency of use: Daily Substance route: Injection (ex: intravenous or skin popping) Cocaine- Powder Substance amount: $20 Frequency of use: Daily Substance route: Injection (ex: intravenous or skin popping) Date of Last Use: 10/17/19 Marijuana/Hashish Substance amount: 2-3 bags Frequency of use: Daily Substance route: Smoking Date of Last Use: 10/18/19 COWS - Scale Resting Pulse: 0= [place] 80 or Below Sweatin= Chills/Flushing Restless Observation: 1= Difficult to Sit Still Pupil Size: 2= Moderately Dilated Bone or Joint Aches: 2= Severe Diffuse Aches Runny Nose/ Eye Tearin= Runny Nose/Eyes GI Upset > 30mins: 2= Nausea/Diarrhea Tremor Observation: 1= Tremor [employer], Not Seen Yawning Observation: 2= >3x During Session Anxiety or Irritability: 1=Feels Anxious/Irritable Goose Flesh Skin: 3=Piloerection COWS Score: 17
== END 2019-08-31 09:05 | disposition home or self-care (01) | DRG 772 ==
LOC: YASAS 15:17 → Y3E 15:19
PROVIDERS: ADMIT Allergy & Immunology; ATTEND Allergy & Immunology
PROC: HZ42ZZZ Group Counseling for Substance Abuse Treatment, Cognitive-Behavioral (ICD-10-PCS; principal; 2019-08-22)
DX: F11.20 Opioid dependence, uncomplicated (principal); F14.20 Cocaine dependence, uncomplicated; Z21 Asymptomatic human immunodeficiency virus [HIV] infection status; M41.9 Scoliosis, unspecified; M54.5 Low back pain; G89.29 Other chronic pain; Z91.14 Patient's other noncompliance with medication regimen

== ENCOUNTER 2019-10-18 15:34 | Inpatient (IN) | payer OTHER ==
[2019-10-18 21:10] VITALS: BMI 22.1
--- NOTE | 2019-10-18 21:50 | HP ---
COWS - Scale Resting Pulse: 0= [place] 80 or Below Sweatin=Flushed/Facial Moisture Restless Observation: 0= Sits Still Pupil Size: 0= Normal to Room Light Bone or Joint Aches: 2= Severe Diffuse Aches Runny Nose/ Eye Tearin= Runny Nose/Eyes GI Upset > 30mins: 3= Vomiting/Diarrhea (vomiting x 2, diarrhea x 1) Tremor Observation: 2= Slight Tremor Visible Yawning Observation: 0= None Anxiety or Irritability: 2=Irritable/Anxious Goose Flesh Skin: 3=Piloerection COWS Score: 16 CIWA Score - Admission Criteria [facility]ASAS Guidelines: Admission for Medically Managed Detox: Requires at least one of the followin. CIWA greater than 12 2. Seizures within the past 24 hours 3. Delirium tremens within the past 24 hours 4. Hallucinations within the past 24 hours 5. Acute intervention needed for co occurring medical disorder 6. Acute intervention needed for co occurring psychiatric disorder 7. Severe withdrawal that cannot be handled at a lower level of care (continued vomiting, continued diarrhea, abnormal vital signs) requiring intravenous medication and/or fluids 8. Admitting History and Physical - Past Medical History Hepatobiliary: Yes: Hepatitis C Infectious Disease: Yes: AIDS, HIV Psych: Yes: Anxiety - Smoking History Smoking history: Current every day smoker Have you smoked in the past 12 months: Yes Aproximately how many cigarettes per day: 4 - Alcohol/Substance Use Hx Alcohol Use: No History of Substance Use: reports: Heroin, Marijuana - Social History History of Recent Travel: No Admission [facility] Chief Complaint: Seeking admission to detox from heroin Allergies/Adverse Reactions: Allergies Allergy/AdvReac Type Severity Reaction Status Date / Time No Known Allergies Allergy Verified 08/18/19 11:32 History of Present Illness: 53 years old male with 20 years history of heroin dependence is seeking admission to detox. His last detox was for the period 08/22/2019 - 08/31/2019 and he reports that relapsed a month later. He uses 4 bags intravenous daily. He has medical history of HIV +, Hep. C, genital herpes, asthma, osteoarthritis and testicular hernia. He denies psych. history and suicidal ideation at this time. He is unemployed on SSI, homeless and denies legal issues. He denies blackouts and reports overdose. Exam Limitations: Physical Impairment (ambulates with a cane) - Ebola screening Have you traveled outside of the country in the last 21 days: No Have you had contact with anyone from an Ebola affected area: No Have you been sick,other than usual withdrawal symptoms: No Do you have a fever: No - Review of Systems Constitutional: Chills, Malaise, Night Sweats EENT: reports: Nose Congestion Respiratory: reports: No Symptoms reported Cardiac: reports: No Symptoms Reported GI: reports: Diarrhea (x 1), Nausea, Poor Appetite, Poor Fluid Intake, Vomiting (x 2), Abdominal cramping : reports: No Symptoms Reported Musculoskeletal: reports: No Symptoms Reported Integumentary: reports: Dryness, Flushing Neuro: reports: Tremors Endocrine: reports: No Symptoms Reported Hematology: reports: No Symptoms Reported Psychiatric: reports: Mood/Affect Appropiate, Orientated x3 Other Systems: Reviewed and Negative Patient History - Patient Medical History Hx Anemia: No Hx Asthma: Yes (Not on medixation) Hx Chronic Obstructive Pulmonary Disease (COPD): No Hx Cancer: No Hx Cardiac Disorders: No Hx Congestive Heart Failure: No Hx Hypertension: No Hx Hypercholesterolemia: No Hx Pacemaker: No HX Cerebrovascular Accident: No Hx Seizures: No Hx Dementia: No Hx Diabetes: No Hx Gastrointestinal Disorders: No Hx Liver Disease: No Hx Genitourinary Disorders: No Hx Sexually Transmitted Disorders: Yes (Genital herpes) Hx Renal Disease (ESRD): No Hx Thyroid Disease: No Hx Human Immunodeficiency Virus (HIV): Yes (since 1990) Hx Hepatitis C: Yes (Not treated) Hx Depression: No Hx Suicide Attempt: No (Denies suicidal ideation at this time) Hx Bipolar Disorder: No Hx Schizophrenia: No Other Medical History: Testicular hernia, Osteoarthritis - Patient Surgical History Past Surgical History: Yes Hx Neurologic Surgery: No Hx Cataract Extraction: No Hx Cardiac Surgery: No Hx Lung Surgery: No Hx Abdominal Surgery: No Hx Appendectomy: No Hx Cholecystectomy: No Hx Genitourinary Surgery: No Hx Orthopedic Surgery: No Other Surgical History: removal of a growth from L forehead. Anesthesia Reaction: No - PPD History Previous Implant?: Yes Implanted On Prior [facility] Admission?: Yes Date: 11/29/18 Results: 0mm PPD to be Administered?: No - Reproductive History Patient is a Female of Child Bearing Age (11 -55 yrs old): No (male) - Smoking Cessation Smoking history: Current every day smoker Have you smoked in the past 12 months: Yes Aproximately how many cigarettes per day: 4 Cigars Per Day: 0 Hx Chewing Tobacco Use: No Initiated information on smoking cessation: Yes 'Breaking Loose' booklet given: 10/18/19 - Substance & Tx. History Hx Alcohol Use: No Hx Substance Use: Yes Substance Use Type: Cocaine, Heroin, Opiates Hx Substance Use Treatment: Yes ([facility]) - Substances abused Heroin Substance route: Injection Frequency: 1-3 times last 30 days Amount used: 4 Age of first use: 33 Date of last use: 10/17/19 Admission Physical Exam S - Vital Signs Vital Signs: Vital Signs - 24 hr 10/18/19 21:09 Temperature 97.0 F L Pulse Rate 76 Respiratory 17 Rate Blood Pressure 110/72 - Physical General Appearance: Yes: Moderate Distress, Tremorous, Anxious HEENTM: Yes: Within Normal Limits Respiratory: Yes: Lungs Clear, Normal Breath Sounds, No Respiratory Distress Neck: Yes: Within Normal Limits Breast: Yes: Breast Exam Deferred Cardiology: Yes: Regular Rhythm, Regular Rate Abdominal: Yes: Normal Bowel Sounds, Soft Genitourinary: Yes: Within Normal Limits Back: Yes: Normal Inspection Musculoskeletal: Yes: Within Normal Limits Extremities: Yes: Tremors Neurological: Yes: Within Normal Limits Integumentary: Yes: Within Normal Limits Lymphatic: Yes: Within Normal Limits - Diagnostic (1) Cannabis dependence Current Visit: Yes Status: Chronic (2) Cocaine dependence Current Visit: Yes Status: Chronic Qualifiers: Substance use status: uncomplicated Qualified Code(s): F14.20 - Cocaine dependence, uncomplicated (3) Depression Current Visit: Yes Status: Chronic (4) Genital herpes simplex Current Visit: Yes Status: Chronic (5) Opioid dependence with withdrawal Current Visit: Yes Status: Acute (6) Asthma Current Visit: Yes Status: Chronic Qualifiers: Asthma severity: mild Asthma persistence: intermittent Asthma complication type: with status asthmaticus Qualified Code(s): J45.22 - Mild intermittent asthma with status asthmaticus (7) HIV (human immunodeficiency virus infection) Current Visit: Yes Status: Chronic Qualifiers: HIV symptom status: asymptomatic Qualified Code(s): Z21 - Asymptomatic human immunodeficiency virus [HIV] infection status (8) Hepatitis C Current Visit: Yes Status: Chronic Qualifiers: Viral hepatitis chronicity: chronic Hepatic coma status: without hepatic coma Qualified Code(s): B18.2 - Chronic viral hepatitis C Cleared for Admission S - Detox or Rehab [facility] Level of Care: Medically Managed Detox Regimen/Protocol: Methadone Claeared for Rehab Admission: No Breathalyzer - Breathalyzer Breathalyzer: 0 Urine Drug Screen - Test Device Lot number: [id number] Expiration date: 09/09/21 - Control Is test valid?: Yes - Results Drug screen NEGATIVE: No Urine drug screen results: THC-Marijuana, PRADEEP-Cocaine, FEN-Fentanyl, MOP-Opiates Inpatient Rehab Admission - Rehab Decision to Admit Inpatient rehab admission?: No
[2019-10-18] MEDS ORDERED: METHADONE HCL 10 MG TABLET (FOR DETOX USE ONLY) PO ONE (22:11)
[2019-10-18] MEDS ORDERED: IBUPROFEN 400 MG TABLET (FP) PO PRN (22:11)
[2019-10-18] MEDS ORDERED: NICOTINE POLACRILEX 2 MG GUM BUC PRN (22:11)
[2019-10-18] MEDS ORDERED: MAGNESIUM CITRATE 300 ML BOTTLE PO PRN (22:11)
[2019-10-18] MEDS ORDERED: MAGNESIUM HYDROX 2400MG/30ML ORAL SUSPENSION 30 ML CUP PO PRN (22:11)
[2019-10-18] MEDS ORDERED: cloNIDine HCL 0.1 MG TABLET PO PRN (22:11)
[2019-10-18] MEDS ORDERED: ACETAMINOPHEN 325 MG TABLET (FP) PO PRN ×2 (22:11)
[2019-10-18] MEDS ORDERED: BISMUTH SUBSALICYLATE 524 MG/30 ML UD PO PRN (22:11)
[2019-10-18] MEDS ORDERED: MAG HYDROX/AL HYDROX/SIMETH 30 ML UNIT-DOSE CUP PO PRN (22:11)
[2019-10-18] MEDS ORDERED: MENTHOL/PHENOL 1 EACH UD MM PRN (22:11)
[2019-10-18] MEDS ORDERED: ONDANSETRON *ODT* 4 MG TABLET SL PRN (22:11)
[2019-10-18] MEDS ORDERED: METHADONE 20 MG, METHADONE 5 MG PO ONE (23:30)
[2019-10-19] MEDS ORDERED: METHADONE HCL 5 MG TABLET ONE (00:37)
[2019-10-19] MEDS ORDERED: METHADONE HCL 10 MG TABLET ONE (00:37)
[2019-10-19] MEDS: METHOCARBAMOL 500 MG TABLET PO PRN (00:40)
[2019-10-19 09:44] LABS: ALBUMIN 3.2 g/dl (3.4-5.0); BLOOD UREA NITROGEN 12.8 mg/dL (7-18); CALCIUM 8.6 mg/dL (8.5-10.1); POTASSIUM 4.2 mmol/L (3.5-5.1)
[2019-10-19 09:48] LABS: BILIRUBIN,TOTAL 0.9 mg/dL (0.2-1); HEMATOCRIT 39.1 % (35.4-49); MCH 29.2 pg (25.7-33.7); MCHC 33.2 g/dl (32.0-35.9); MEAN CELL VOLUME 87.7 fl (80-96); MEAN PLT VOLUME 8.8 fl (7.5-11.1); PLATELET COUNT 135 K/MM3 (134-434); RBC 4.45 M/mm3 (4.00-5.60); TOT PROT 6.9 g/dl (6.4-8.2); WHITE BLOOD COUNT 2.5 K/mm3 (4.0-10.0)
[2019-10-19] MEDS ORDERED: METHADONE HCL 10 MG TABLET (FOR DETOX USE ONLY) PO ONE (10:00)
[2019-10-19] MEDS: NICOTINE 14 MG/24 HOURS TOPICAL PATCH TD SCH (10:54)
[2019-10-19] MEDS: PRENATAL VITAMINS W/ FOLIC ACID TABLET (FP) PO SCH (10:54)
--- NOTE | 2019-10-19 17:19 | PN ---
BHS COWS - Scale Resting Pulse: 0= [place] 80 or Below Sweatin= Chills/Flushing Restless Observation: 1= Difficult to Sit Still Pupil Size: 0= Normal to Room Light Bone or Joint Aches: 1= Mild Discomfort Runny Nose/ Eye Tearin= None GI Upset > 30mins: 0= None Tremor Observation of Outstretched Hands: 0= None Yawning Observation: 1= 1-2x During Session Anxiety or Irritability: 2=Irritable/Anxious Goose Flesh Skin: 0=Smooth Skin COWS Score: 6 BHS Progress Note (SOAP) Subjective: Chills, Sweating, Body Aches, Poor Appetite, Interrupted Sleep. Objective: Patient A & O X 3, Observed Ambulating on Detox Unit Unassisted. In No Acute Distress. 10/19/19 17:17 Vital Signs Temperature 96.8 F L 10/19/19 12:22 Pulse Rate 68 10/19/19 12:22 Respiratory Rate 19 10/19/19 12:22 Blood Pressure 122/77 10/19/19 12:22 O2 Sat by Pulse Oximetry (%) 100 10/19/19 12:22 Laboratory Tests 10/19/19 10/19/19 10/19/19 07:40 07:40 07:40 WBC 2.5 L RBC 4.45 Hgb 13.0 Hct 39.1 MCV 87.7 MCH 29.2 MCHC 33.2 RDW 15.0 Plt Count 135 MPV 8.8 D Sodium 141 Potassium 4.2 Chloride 107 Carbon Dioxide 32 Anion Gap 3 L BUN 12.8 Creatinine 1.0 Est GFR (CKD-EPI)AfAm 99.15 Est GFR (CKD-EPI)NonAf 85.55 Random Glucose 122 H Calcium 8.6 Total Bilirubin 0.9 AST 80 H ALT 77 H Alkaline Phosphatase 103 Total Protein 6.9 Albumin 3.2 L Syphilis Serology Non-reactive Lab results noted. WBC noted to be low (2.5). Patient has had low WBC levels on previous admissions. Patient reports history of HIV. 10/19/19 17:19 Assessment: 10/19/19 17:20 WITHDRAWAL SYMPTOMS. ELEVATED AST LEVEL. ELEVATED ALT LEVEL. LEUKOPENIA. Plan: Continue Detox. Increase Daily Oral Water Intake. Ensure PO for caloric supplementation.
[2019-10-19] MEDS: THIAMINE HCL 100 MG TABLET (FP) PO SCH (23:05)
[2019-10-19] MEDS: MELATONIN 5 MG TABLETS PO SCH (23:05)
[2019-10-20] MEDS ORDERED: METHADONE HCL 5 MG TABLET PO ONE (10:00)
[2019-10-20] MEDS: PRENATAL VITAMINS W/ FOLIC ACID TABLET (FP) PO SCH (10:46)
[2019-10-20] MEDS: NICOTINE 14 MG/24 HOURS TOPICAL PATCH TD SCH (10:46)
--- NOTE | 2019-10-20 17:58 | PN ---
BHS COWS - Scale Resting Pulse: 1= [place] 81-100 Sweatin= Chills/Flushing Restless Observation: 0= Sits Still Pupil Size: 0= Normal to Room Light Bone or Joint Aches: 1= Mild Discomfort Runny Nose/ Eye Tearin= Runny Nose/Eyes GI Upset > 30mins: 1= Stomach Cramp Tremor Observation of Outstretched Hands: 0= None Yawning Observation: 0= None Anxiety or Irritability: 2=Irritable/Anxious Goose Flesh Skin: 0=Smooth Skin COWS Score: 8 BHS Progress Note (SOAP) Subjective: Chills, tremor, sweating Objective: 10/20/19 17:53 Last Vital Signs Temp Pulse Resp BP Pulse Ox 97.1 F L 83 18 137/71 100 10/20/19 13:10 10/20/19 13:10 10/20/19 13:10 10/20/19 13:10 10/20/19 13:10 Elevated b/p: denies htn Laboratory Tests 10/19/19 10/19/19 10/19/19 07:40 07:40 07:40 WBC 2.5 L RBC 4.45 Hgb 13.0 Hct 39.1 MCV 87.7 MCH 29.2 MCHC 33.2 RDW 15.0 Plt Count 135 MPV 8.8 D Sodium 141 Potassium 4.2 Chloride 107 Carbon Dioxide 32 Anion Gap 3 L BUN 12.8 Creatinine 1.0 Est GFR (CKD-EPI)AfAm 99.15 Est GFR (CKD-EPI)NonAf 85.55 Random Glucose 122 H Calcium 8.6 Total Bilirubin 0.9 AST 80 H ALT 77 H Alkaline Phosphatase 103 Total Protein 6.9 Albumin 3.2 L Syphilis Serology Non-reactive COVID-19 (JORGE) 10/19/19 09:00 WBC RBC Hgb Hct MCV MCH MCHC RDW Plt Count MPV Sodium Potassium Chloride Carbon Dioxide Anion Gap BUN Creatinine Est GFR (CKD-EPI)AfAm Est GFR (CKD-EPI)NonAf Random Glucose Calcium Total Bilirubin AST ALT Alkaline Phosphatase Total Protein Albumin Syphilis Serology COVID-19 (JORGE) Not detected Labs reviewed: AST/ALT elevated, serum glucose 122 (high) Assessment: 10/20/19 17:56 Withdrawal sxs Noted with elevated b/p, hyperglycemia and transaminitis Plan: Continue detox Encourage PO water intake Elevated b/p: on clonidine prn, monitor b/p Hyperglycemia: repeat fasting glucose, send A1c Transaminitis: repeat AST/ALT
[2019-10-20] MEDS: THIAMINE HCL 100 MG TABLET (FP) PO SCH (23:32)
[2019-10-20] MEDS: MELATONIN 5 MG TABLETS PO SCH (23:32)
[2019-10-21] MEDS ORDERED: METHADONE HCL 10 MG TABLET (FOR DETOX USE ONLY) PO ONE (10:00)
[2019-10-21] MEDS: PRENATAL VITAMINS W/ FOLIC ACID TABLET (FP) PO SCH (10:13)
[2019-10-21] MEDS: NICOTINE 14 MG/24 HOURS TOPICAL PATCH TD SCH (10:14)
--- NOTE | 2019-10-21 11:44 | EKG ---
Test Reason : Blood Pressure : / mmHG Vent. Rate : 059 BPM Atrial Rate : 059 BPM P-R Int : 166 ms QRS Dur : 090 ms QT Int : 448 ms P-R-T Axes : 062 055 060 degrees QTc Int : 443 ms SINUS BRADYCARDIA OTHERWISE NORMAL ECG NO PREVIOUS ECGS AVAILABLE Confirmed by DELANO ROSAS MD ([id number]) on 10/21/2019 11:44:14 AM Referred By: Confirmed By:DELANO ROSAS MD
--- NOTE | 2019-10-21 17:15 | PN ---
BHS COWS - Scale Resting Pulse: 1= [place] 81-100 Sweatin= No chills or Flushing Restless Observation: 0= Sits Still Pupil Size: 0= Normal to Room Light Bone or Joint Aches: 1= Mild Discomfort Runny Nose/ Eye Tearin= None GI Upset > 30mins: 1= Stomach Cramp Tremor Observation of Outstretched Hands: 1= Tremor [place], Not Seen Yawning Observation: 0= None Anxiety or Irritability: 2=Irritable/Anxious Goose Flesh Skin: 0=Smooth Skin COWS Score: 6 BHS Progress Note (SOAP) Subjective: alert,irritable,anxious,interrupted sleep Objective: 10/21/19 17:13 Vital Signs Temperature 97.1 F L 10/21/19 12:55 Pulse Rate 81 10/21/19 12:55 Respiratory Rate 18 10/21/19 12:55 Blood Pressure 100/61 10/21/19 12:55 O2 Sat by Pulse Oximetry (%) 100 10/20/19 20:30 Assessment: 10/21/19 17:14 withdrawal symptom Plan: continue detox methadone regimen,discharge in am
[2019-10-21] MEDS ORDERED: MASKS NR ONE (17:38)
[2019-10-21] MEDS: THIAMINE HCL 100 MG TABLET (FP) PO SCH (22:38)
[2019-10-21] MEDS: MELATONIN 5 MG TABLETS PO SCH (22:38)
[2019-10-22] MEDS: METHOCARBAMOL 500 MG TABLET PO PRN (05:29)
[2019-10-22] MEDS ORDERED: METHADONE HCL 5 MG TABLET PO ONE ×2 (06:00→10:00)
[2019-10-22] MEDS ORDERED: METHADONE HCL 5 MG TABLET (FOR DETOX USE ONLY) PO ONE (06:00)
[2019-10-22 06:13] VITALS: BP 137/76; PULSE 71; TEMP 98
--- NOTE | 2019-10-22 07:38 | DS ---
[facility] Detox Discharge Summary Admission Date: 10/18/19 - History Additional Comments: informed by nursing that pt left the unit prior to his d/c time of 8 am. - Physical Exam Results Vital Signs: Vital Signs Temperature 98 F 10/22/19 06:12 Pulse Rate 71 10/22/19 06:12 Respiratory Rate 18 10/22/19 06:12 Blood Pressure 137/76 10/22/19 06:12 O2 Sat by Pulse Oximetry (%) 100 10/22/19 06:12 - Medication Discharge Medications: Ambulatory Orders Azithromycin [Zithromax 600mg Tablets -] 1,200 mg PO WEEKLY #10 tablet 08/29/19 Darunavir Ethanolate [Prezista -] 800 mg PO DAILY #30 tablet 08/29/19 Dolutegravir Sodium [Tivicay] 50 mg PO DAILY #30 tablet 08/29/19 Ritonavir [Norvir -] 100 mg PO DAILY@0800 #30 tab 08/29/19 Sulfamethoxazole/Trimethoprim [Bactrim DS -] 1 tab PO DAILY #30 tablet 08/29/19
== END 2019-10-22 06:58 | disposition home or self-care (01) | DRG 773 ==
LOC: YASAS 15:34 → Y6N 22:25
PROVIDERS: ADMIT Allergy & Immunology; ATTEND Allergy & Immunology
PROC: HZ2ZZZZ Detoxification Services for Substance Abuse Treatment (ICD-10-PCS; principal; 2019-10-18)
DX: F11.23 Opioid dependence with withdrawal (principal); F14.20 Cocaine dependence, uncomplicated; F12.20 Cannabis dependence, uncomplicated; F17.210 Nicotine dependence, cigarettes, uncomplicated; F41.9 Anxiety disorder, unspecified; B20 Human immunodeficiency virus [HIV] disease; A60.00 Herpesviral infection of urogenital system, unspecified; D72.819 Decreased white blood cell count, unspecified; B18.2 Chronic viral hepatitis C; J45.909 Unspecified asthma, uncomplicated; M19.90 Unspecified osteoarthritis, unspecified site; R03.0 Elevated blood-pressure reading, without diagnosis of hypertension; R73.9 Hyperglycemia, unspecified; R74.0 Nonspecific elevation of levels of transaminase and lactic acid dehydrogenase [LDH]; Z86.19 Personal history of other infectious and parasitic diseases; Z99.89 Dependence on other enabling machines and devices; Z59.0 Homelessness
CPT/HCPCS: 36415; 80053; 85027; 86780; 93005; 93010; U0003

== ENCOUNTER 2020-01-01 17:14 | Inpatient (IN) | payer OTHER ==
[2020-01-01 18:07] VITALS: BMI 23.0
[2020-01-01] MEDS ORDERED: IBUPROFEN 400 MG TABLET (FP) PO PRN (18:27)
[2020-01-01] MEDS ORDERED: ONDANSETRON *ODT* 4 MG TABLET SL PRN (18:27)
[2020-01-01] MEDS ORDERED: METHOCARBAMOL 500 MG TABLET PO PRN (18:27)
[2020-01-01] MEDS ORDERED: MAGNESIUM CITRATE 300 ML BOTTLE PO PRN (18:27)
[2020-01-01] MEDS ORDERED: cloNIDine HCL 0.1 MG TABLET PO PRN (18:27)
[2020-01-01] MEDS ORDERED: MENTHOL/PHENOL 1 EACH UD MM PRN (18:27)
[2020-01-01] MEDS ORDERED: NICOTINE POLACRILEX 2 MG GUM BUC PRN (18:27)
[2020-01-01] MEDS ORDERED: MAG HYDROX/AL HYDROX/SIMETH 30 ML UNIT-DOSE CUP PO PRN (18:27)
[2020-01-01] MEDS ORDERED: MAGNESIUM HYDROX 2400MG/30ML ORAL SUSPENSION 30 ML CUP PO PRN (18:27)
[2020-01-01] MEDS ORDERED: METHADONE HCL 10 MG TABLET (FOR DETOX USE ONLY) PO ONE (18:27)
[2020-01-01] MEDS ORDERED: ACETAMINOPHEN 325 MG TABLET (FP) PO PRN ×2 (18:27)
[2020-01-01] MEDS ORDERED: BISMUTH SUBSALICYLATE 524 MG/30 ML UD PO PRN (18:27)
[2020-01-01] MEDS: hydrOXYzine PAMOATE 25 MG CAPSULE (FP) PO SCH (22:26)
[2020-01-01] MEDS: MELATONIN 5 MG TABLETS PO SCH (22:26)
[2020-01-01] MEDS: SULFAMETHOXAZOLE/TRIMETHOPRIM 800MG/160MG D.S. TABLET PO SCH (22:26)
[2020-01-01] MEDS: THIAMINE HCL 100 MG TABLET (FP) PO SCH (22:26)
[2020-01-02] MEDS: hydrOXYzine PAMOATE 25 MG CAPSULE (FP) PO SCH ×5 (06:33→22:22)
[2020-01-02] MEDS ORDERED: METHADONE HCL 10 MG TABLET (FOR DETOX USE ONLY) ONE (08:41)
[2020-01-02] MEDS ORDERED: METHADONE HCL 5 MG TABLET (FOR DETOX USE ONLY) ONE (08:42)
[2020-01-02 09:39] LABS: HEMATOCRIT 33.9 % (35.4-49); MCH 28.6 pg (25.7-33.7); MCHC 32.4 g/dl (32.0-35.9); MEAN CELL VOLUME 88.1 fl (80-96); MEAN PLT VOLUME 9.2 fl (7.5-11.1); PLATELET COUNT 81 K/MM3 (134-434); RBC 3.84 M/mm3 (4.00-5.60); RDW 15.9 % (11.9-15.9); WHITE BLOOD COUNT 2.2 K/mm3 (4.0-10.0)
[2020-01-02 09:42] LABS: POTASSIUM 3.6 mmol/L (3.5-5.1)
[2020-01-02 09:46] LABS: CALCIUM 8.3 mg/dL (8.5-10.1)
[2020-01-02 09:47] LABS: ALBUMIN 2.9 g/dl (3.4-5.0); BLOOD UREA NITROGEN 11.1 mg/dL (7-18)
[2020-01-02 09:49] LABS: CREATININE 0.9 mg/dL (0.55-1.3)
[2020-01-02 09:51] LABS: BILIRUBIN,TOTAL 0.9 mg/dL (0.2-1); TOT PROT 6.3 g/dl (6.4-8.2)
[2020-01-02] MEDS ORDERED: METHADONE (DETOX) 20 MG, METHADONE (DETOX) 5 MG PO ONE (10:00)
[2020-01-02] MEDS: PRENATAL VITAMINS W/ FOLIC ACID TABLET (FP) PO SCH (10:13)
[2020-01-02] MEDS: SULFAMETHOXAZOLE/TRIMETHOPRIM 800MG/160MG D.S. TABLET PO SCH ×2 (10:13→22:21)
[2020-01-02] MEDS: NICOTINE 7 MG/24 HOURS TOPICAL PATCH TD SCH (10:14)
[2020-01-02] MEDS: MELATONIN 5 MG TABLETS PO SCH (22:21)
[2020-01-02] MEDS: THIAMINE HCL 100 MG TABLET (FP) PO SCH (22:21)
[2020-01-03] MEDS: hydrOXYzine PAMOATE 25 MG CAPSULE (FP) PO SCH ×5 (05:27→22:31)
[2020-01-03] MEDS ORDERED: METHADONE HCL 10 MG TABLET (FOR DETOX USE ONLY) PO ONE (10:00)
[2020-01-03 10:23] LABS: HEMATOCRIT 36.3 % (35.4-49); MCH 28.9 pg (25.7-33.7); MCHC 32.9 g/dl (32.0-35.9); MEAN CELL VOLUME 87.6 fl (80-96); MEAN PLT VOLUME 9.2 fl (7.5-11.1); PLATELET COUNT 86 K/MM3 (134-434); RBC 4.14 M/mm3 (4.00-5.60); RDW 15.8 % (11.9-15.9)
[2020-01-03] MEDS: PRENATAL VITAMINS W/ FOLIC ACID TABLET (FP) PO SCH (10:23)
[2020-01-03] MEDS: NICOTINE 7 MG/24 HOURS TOPICAL PATCH TD SCH (10:24)
[2020-01-03] MEDS: SULFAMETHOXAZOLE/TRIMETHOPRIM 800MG/160MG D.S. TABLET PO SCH (10:25)
[2020-01-03 10:30] LABS: WHITE BLOOD COUNT 1.8 K/mm3 (4.0-10.0)
[2020-01-03] MEDS: THIAMINE HCL 100 MG TABLET (FP) PO SCH (22:31)
[2020-01-03] MEDS: CEPHALEXIN MONOHYDRATE 500 MG CAPSULE (UD) PO SCH (22:31)
[2020-01-03] MEDS: MELATONIN 5 MG TABLETS PO SCH (22:31)
[2020-01-04] MEDS: hydrOXYzine PAMOATE 25 MG CAPSULE (FP) PO SCH ×2 (06:55→10:39)
[2020-01-04] MEDS: CEPHALEXIN MONOHYDRATE 500 MG CAPSULE (UD) PO SCH (06:55)
[2020-01-04 09:20] VITALS: BP 122/74; PULSE 62; TEMP 97.3
[2020-01-04] MEDS ORDERED: METHADONE HCL 10 MG TABLET (FOR DETOX USE ONLY) ONE (09:25)
[2020-01-04] MEDS ORDERED: METHADONE HCL 5 MG TABLET (FOR DETOX USE ONLY) ONE (09:25)
[2020-01-04] MEDS ORDERED: METHADONE (DETOX) 10 MG, METHADONE (DETOX) 5 MG PO ONE (10:00)
[2020-01-04] MEDS: PRENATAL VITAMINS W/ FOLIC ACID TABLET (FP) PO SCH (10:39)
[2020-01-04] MEDS: NICOTINE 7 MG/24 HOURS TOPICAL PATCH TD SCH (10:39)
[2020-01-05] MEDS ORDERED: METHADONE HCL 10 MG TABLET (FOR DETOX USE ONLY) PO ONE (10:00)
[2020-01-06] MEDS ORDERED: METHADONE HCL 5 MG TABLET (FOR DETOX USE ONLY) PO ONE (06:00)
== END 2020-01-04 11:51 | disposition home or self-care (01) | DRG 773 ==
LOC: YASAS 17:14 → Y3N 19:05
PROVIDERS: ADMIT Allergy & Immunology; ATTEND Allergy & Immunology
PROC: HZ2ZZZZ Detoxification Services for Substance Abuse Treatment (ICD-10-PCS; principal; 2020-01-01)
DX: F11.23 Opioid dependence with withdrawal (principal); F10.20 Alcohol dependence, uncomplicated; F14.20 Cocaine dependence, uncomplicated; F12.20 Cannabis dependence, uncomplicated; F17.210 Nicotine dependence, cigarettes, uncomplicated; B20 Human immunodeficiency virus [HIV] disease; J45.909 Unspecified asthma, uncomplicated; D72.819 Decreased white blood cell count, unspecified; D69.6 Thrombocytopenia, unspecified; M19.90 Unspecified osteoarthritis, unspecified site; L03.113 Cellulitis of right upper limb; B18.2 Chronic viral hepatitis C; R21 Rash and other nonspecific skin eruption; I87.8 Other specified disorders of veins; Z86.19 Personal history of other infectious and parasitic diseases; Z87.438 Personal history of other diseases of male genital organs
CPT/HCPCS: 36415; 80053; 85027; 86780; C9803; U0003

== ENCOUNTER 2020-12-27 09:22 | Inpatient (IN) | payer OTHER ==
[2020-12-27 09:57] VITALS: BMI 23.0
[2020-12-27] MEDS ORDERED: MENTHOL/PHENOL 1 EACH UD MM PRN (10:47)
[2020-12-27] MEDS ORDERED: NICOTINE 10 MG CARTRIDGE (INHALER) IH PRN (10:47)
[2020-12-27] MEDS ORDERED: MAGNESIUM CITRATE 300 ML BOTTLE PO PRN (10:47)
[2020-12-27] MEDS ORDERED: IBUPROFEN 400 MG TABLET (FP) PO PRN (10:47)
[2020-12-27] MEDS ORDERED: methaDONE HCL 10 MG TABLET (FOR DETOX USE ONLY) PO ONE (10:47)
[2020-12-27] MEDS ORDERED: cloNIDine HCL 0.1 MG TABLET PO PRN (10:47)
[2020-12-27] MEDS ORDERED: MAGNESIUM HYDROX 2400MG/30ML ORAL SUSPENSION 30 ML CUP PO PRN (10:47)
[2020-12-27] MEDS ORDERED: BISMUTH SUBSALICYLATE 524 MG/30 ML PO PRN (10:47)
[2020-12-27] MEDS ORDERED: ACETAMINOPHEN 325 MG TABLET (FP) PO PRN ×2 (10:47)
[2020-12-27] MEDS ORDERED: MAG HYDROX/AL HYDROX/SIMETH 30 ML UNIT-DOSE CUP PO PRN (10:47)
[2020-12-27] MEDS: METHOCARBAMOL 500 MG TABLET PO PRN (12:00)
[2020-12-27] MEDS: hydrOXYzine PAMOATE 25 MG CAPSULE (FP) PO SCH ×3 (15:28→22:49)
[2020-12-27] MEDS: THIAMINE HCL 100 MG TABLET (FP) PO SCH (22:49)
[2020-12-27] MEDS: MELATONIN 5 MG TABLETS PO SCH (22:49)
[2020-12-28] MEDS: hydrOXYzine PAMOATE 25 MG CAPSULE (FP) PO SCH ×5 (06:59→22:51)
[2020-12-28] MEDS ORDERED: methaDONE HCL 10 MG TABLET (FOR DETOX USE ONLY) ONE (08:58)
[2020-12-28] MEDS: BICTEGRAV/EMTRICIT/TENOFOV (BIKTARVY) 50-200-25 MG TABLET PO SCH (10:40)
[2020-12-28] MEDS: PRENATAL VITAMINS W/ FOLIC ACID TABLET (FP) PO SCH (10:40)
[2020-12-28] MEDS: SULFAMETHOXAZOLE/TRIMETHOPRIM 800MG/160MG D.S. TABLET PO SCH (10:40)
[2020-12-28] MEDS ORDERED: BICTEGRAV/EMTRICIT/TENOFOV (BIKTARVY) 50-200-25 MG TABLET PO SCH (11:45)
[2020-12-28 13:50] LABS: HEMATOCRIT 36.7 % (35.4-49); HEMOGLOBIN 12.5 GM/dL (11.7-16.9); MCH 31.2 pg (25.7-33.7); MCHC 34.1 g/dl (32.0-35.9); MEAN CELL VOLUME 91.5 fl (80-96); MEAN PLT VOLUME 9.5 fl (7.5-11.1); PLATELET COUNT 85 10^3/uL (134-434); RBC 4.01 M/mm3 (4.00-5.60); RDW 16.3 % (11.9-15.9)
[2020-12-28] MEDS: ASPIRIN 81 MG CHEWABLE TABLETS PO SCH (14:03)
[2020-12-28 14:41] LABS: WHITE BLOOD COUNT 1.7 K/mm3 (4.0-10.0)
[2020-12-28 14:54] LABS: CALCIUM 8.3 mg/dL (8.5-10.1)
[2020-12-28 14:55] LABS: BLOOD UREA NITROGEN 9.6 mg/dL (7-18)
[2020-12-28 14:58] LABS: BILIRUBIN,TOTAL 0.9 mg/dL (0.2-1); CREATININE 0.9 mg/dL (0.55-1.3)
[2020-12-28 15:00] LABS: TOT PROT 7.2 g/dl (6.4-8.2)
[2020-12-28] MEDS: MELATONIN 5 MG TABLETS PO SCH (22:50)
[2020-12-28] MEDS: THIAMINE HCL 100 MG TABLET (FP) PO SCH (22:51)
[2020-12-29] MEDS: ONDANSETRON *ODT* 4 MG TABLET SL PRN (04:49)
[2020-12-29] MEDS: hydrOXYzine PAMOATE 25 MG CAPSULE (FP) PO SCH ×5 (05:06→21:39)
[2020-12-29] MEDS ORDERED: TRIMETHOBENZAMIDE HCL 200MG/2ML INJ IM ONE (06:23)
[2020-12-29] MEDS ORDERED: methaDONE HCL 10 MG TABLET (FOR DETOX USE ONLY) PO ONE (10:00)
[2020-12-29] MEDS: METHOCARBAMOL 500 MG TABLET PO PRN (10:17)
[2020-12-29] MEDS: SULFAMETHOXAZOLE/TRIMETHOPRIM 800MG/160MG D.S. TABLET PO SCH (10:17)
[2020-12-29] MEDS: PRENATAL VITAMINS W/ FOLIC ACID TABLET (FP) PO SCH (10:17)
[2020-12-29] MEDS: BICTEGRAV/EMTRICIT/TENOFOV (BIKTARVY) 50-200-25 MG TABLET PO SCH (10:17)
[2020-12-29] MEDS: ASPIRIN 81 MG CHEWABLE TABLETS PO SCH (10:17)
[2020-12-29] MEDS ORDERED: TRIMETHOBENZAMIDE HCL 200MG/2ML INJ IM PRN (10:41)
[2020-12-29 14:48] LABS: BASO % 1.6 % (0-2.0); EOS % 1.9 % (0-4.5); HEMATOCRIT 36.8 % (35.4-49); HEMOGLOBIN 12.8 GM/dL (11.7-16.9); LYMPH % 15.9 % (8-40); MCH 31.6 pg (25.7-33.7); MCHC 34.9 g/dl (32.0-35.9); MEAN CELL VOLUME 90.7 fl (80-96); MEAN PLT VOLUME 10.4 fl (7.5-11.1); MONO % 8.6 % (3.8-10.2); PLATELET COUNT 106 10^3/uL (134-434); RBC 4.06 M/mm3 (4.00-5.60); RDW 15.6 % (11.9-15.9)
[2020-12-29 15:28] LABS: ANISOCYTOSIS 1+; MACROCYTOSIS 0; OVALOCYTE 2+; PLATELET ESTIMATE DECREASED
[2020-12-29] MEDS: THIAMINE HCL 100 MG TABLET (FP) PO SCH (21:39)
[2020-12-29] MEDS: MELATONIN 5 MG TABLETS PO SCH (21:40)
[2020-12-30] MEDS: hydrOXYzine PAMOATE 25 MG CAPSULE (FP) PO SCH ×5 (05:46→22:04)
[2020-12-30] MEDS ORDERED: methaDONE HCL 10 MG TABLET (FOR DETOX USE ONLY) ONE (10:09)
[2020-12-30] MEDS: ASPIRIN 81 MG CHEWABLE TABLETS PO SCH (10:15)
[2020-12-30] MEDS: PRENATAL VITAMINS W/ FOLIC ACID TABLET (FP) PO SCH (10:23)
[2020-12-30] MEDS: SULFAMETHOXAZOLE/TRIMETHOPRIM 800MG/160MG D.S. TABLET PO SCH (10:50)
[2020-12-30] MEDS: BICTEGRAV/EMTRICIT/TENOFOV (BIKTARVY) 50-200-25 MG TABLET PO SCH (10:50)
[2020-12-30] MEDS ORDERED: AZITHROMYCIN 600 MG TABLET PO SCH (11:00)
[2020-12-30] MEDS: METHOCARBAMOL 500 MG TABLET PO PRN ×2 (15:31→22:04)
[2020-12-30] MEDS: ONDANSETRON *ODT* 4 MG TABLET SL PRN (17:42)
[2020-12-30] MEDS: MELATONIN 5 MG TABLETS PO SCH (22:04)
[2020-12-30] MEDS: THIAMINE HCL 100 MG TABLET (FP) PO SCH (22:04)
[2020-12-31] MEDS: hydrOXYzine PAMOATE 25 MG CAPSULE (FP) PO SCH ×5 (06:02→22:03)
[2020-12-31] MEDS ORDERED: methaDONE HCL 10 MG TABLET (FOR DETOX USE ONLY) PO ONE (10:00)
[2020-12-31] MEDS: BICTEGRAV/EMTRICIT/TENOFOV (BIKTARVY) 50-200-25 MG TABLET PO SCH (10:23)
[2020-12-31] MEDS: ASPIRIN 81 MG CHEWABLE TABLETS PO SCH (10:23)
[2020-12-31] MEDS: SULFAMETHOXAZOLE/TRIMETHOPRIM 800MG/160MG D.S. TABLET PO SCH (10:23)
[2020-12-31] MEDS: METHOCARBAMOL 500 MG TABLET PO PRN (10:23)
[2020-12-31] MEDS: PRENATAL VITAMINS W/ FOLIC ACID TABLET (FP) PO SCH (10:23)
[2020-12-31] MEDS: ONDANSETRON *ODT* 4 MG TABLET SL PRN (10:50)
[2020-12-31] MEDS: THIAMINE HCL 100 MG TABLET (FP) PO SCH (22:03)
[2020-12-31] MEDS: MELATONIN 5 MG TABLETS PO SCH (22:03)
[2021-01-01] MEDS: hydrOXYzine PAMOATE 25 MG CAPSULE (FP) PO SCH (05:28)
[2021-01-01 05:50] VITALS: TEMP 97.7
[2021-01-01 09:55] VITALS: BP 102/69; PULSE 66
== END 2021-01-01 09:29 | disposition home or self-care (01) | DRG 773 ==
LOC: YASAS 09:22 → Y6N 10:22
PROVIDERS: ADMIT Allergy & Immunology; ATTEND Allergy & Immunology
PROC: HZ2ZZZZ Detoxification Services for Substance Abuse Treatment (ICD-10-PCS; principal; 2020-12-27)
DX: F11.23 Opioid dependence with withdrawal (principal); F10.20 Alcohol dependence, uncomplicated; F14.20 Cocaine dependence, uncomplicated; F12.20 Cannabis dependence, uncomplicated; F17.210 Nicotine dependence, cigarettes, uncomplicated; B20 Human immunodeficiency virus [HIV] disease; J45.20 Mild intermittent asthma, uncomplicated; K40.90 Unilateral inguinal hernia, without obstruction or gangrene, not specified as recurrent; M16.11 Unilateral primary osteoarthritis, right hip; M17.11 Unilateral primary osteoarthritis, right knee; R63.4 Abnormal weight loss; Z68.23 Body mass index [BMI] 23.0-23.9, adult
CPT/HCPCS: 36415; 80053; 85025; 85027; 86780; C9803; Q0162; U0003; U0005

== ENCOUNTER 2021-03-21 11:34 | Inpatient (IN) | payer OTHER ==
[2021-03-21 11:59] VITALS: BMI 22.8
[2021-03-21] MEDS ORDERED: LOPERAMIDE HCL 2 MG CAPSULE PO PRN (16:07)
[2021-03-21] MEDS ORDERED: MAGNESIUM CITRATE 300 ML BOTTLE PO PRN (16:07)
[2021-03-21] MEDS ORDERED: cloNIDine HCL 0.1 MG TABLET PO PRN (16:07)
[2021-03-21] MEDS ORDERED: MENTHOL/PHENOL 1 EACH UD MM PRN (16:07)
[2021-03-21] MEDS ORDERED: IBUPROFEN 400 MG TABLET (FP) PO PRN (16:07)
[2021-03-21] MEDS ORDERED: BISMUTH SUBSALICYLATE 524 MG/30 ML PO PRN (16:07)
[2021-03-21] MEDS ORDERED: ACETAMINOPHEN 325 MG TABLET (FP) PO PRN ×2 (16:07)
[2021-03-21] MEDS ORDERED: MAGNESIUM HYDROX 2400MG/30ML ORAL SUSPENSION 30 ML CUP PO PRN (16:07)
[2021-03-21] MEDS ORDERED: ONDANSETRON *ODT* 4 MG TABLET SL PRN (16:07)
[2021-03-21] MEDS ORDERED: NICOTINE 10 MG CARTRIDGE (INHALER) IH PRN (16:07)
[2021-03-21] MEDS: hydrOXYzine PAMOATE 25 MG CAPSULE (FP) PO SCH ×2 (17:22→22:24)
[2021-03-21] MEDS ORDERED: methaDONE HCL 10 MG TABLET (FOR DETOX USE ONLY) PO ONE (17:30)
[2021-03-21] MEDS: MELATONIN 5 MG TABLETS PO SCH (22:24)
[2021-03-21] MEDS: THIAMINE HCL 100 MG TABLET (FP) PO SCH (22:24)
[2021-03-22] MEDS: hydrOXYzine PAMOATE 25 MG CAPSULE (FP) PO SCH ×6 (05:41→21:29)
[2021-03-22] MEDS ORDERED: methaDONE HCL 10 MG TABLET (FOR DETOX USE ONLY) ONE (09:52)
[2021-03-22] MEDS: METHOCARBAMOL 500 MG TABLET PO PRN (10:15)
[2021-03-22] MEDS: BICTEGRAV/EMTRICIT/TENOFOV (BIKTARVY) 50-200-25 MG TABLET PO SCH (10:15)
[2021-03-22] MEDS: SULFAMETHOXAZOLE/TRIMETHOPRIM 800MG/160MG D.S. TABLET PO SCH (10:15)
[2021-03-22] MEDS: PRENATAL VITAMINS W/ FOLIC ACID TABLET (FP) PO SCH (10:15)
[2021-03-22 11:52] LABS: HEMOGLOBIN 13.5 GM/dL (11.7-16.9); MCH 30.4 pg (25.7-33.7); MEAN CELL VOLUME 92.2 fl (80-96); MEAN PLT VOLUME 10.5 fl (7.5-11.1); PLATELET COUNT 131 10^3/uL (134-434); RBC 4.44 M/mm3 (4.00-5.60); RDW 14.3 % (11.9-15.9); WHITE BLOOD COUNT 2.8 K/mm3 (4.0-10.0)
[2021-03-22 12:06] LABS: ALBUMIN 3.3 g/dl (3.4-5.0)
[2021-03-22 12:09] LABS: BLOOD UREA NITROGEN 15.3 mg/dL (7-18); CREATININE 0.8 mg/dL (0.55-1.3)
[2021-03-22 12:10] LABS: BILIRUBIN,TOTAL 0.9 mg/dL (0.2-1); TOT PROT 7.8 g/dl (6.4-8.2)
[2021-03-22] MEDS: THIAMINE HCL 100 MG TABLET (FP) PO SCH (21:29)
[2021-03-22] MEDS: MELATONIN 5 MG TABLETS PO SCH (21:29)
[2021-03-23] MEDS: METHOCARBAMOL 500 MG TABLET PO PRN ×2 (01:08→23:17)
[2021-03-23] MEDS: diazePAM 5 MG TABLET PO PRN (01:08)
[2021-03-23] MEDS: hydrOXYzine PAMOATE 25 MG CAPSULE (FP) PO SCH ×5 (06:00→23:17)
[2021-03-23] MEDS ORDERED: methaDONE HCL 10 MG TABLET (FOR DETOX USE ONLY) PO ONE (10:00)
[2021-03-23 10:07] LABS: SARS-CoV-2 NAA Detected (Not Detected)
[2021-03-23 10:07] LABS: SARS-CoV-2 NAA Detected (Not Detected)
[2021-03-23] MEDS ORDERED: TRIMETHOBENZAMIDE HCL 200MG/2ML INJ IM PRN (10:36)
[2021-03-23] MEDS: BICTEGRAV/EMTRICIT/TENOFOV (BIKTARVY) 50-200-25 MG TABLET PO SCH (10:51)
[2021-03-23] MEDS: SULFAMETHOXAZOLE/TRIMETHOPRIM 800MG/160MG D.S. TABLET PO SCH (10:52)
[2021-03-23] MEDS: PRENATAL VITAMINS W/ FOLIC ACID TABLET (FP) PO SCH (10:54)
[2021-03-23] MEDS: MAG HYDROX/AL HYDROX/SIMETH 30 ML UNIT-DOSE CUP PO PRN (18:59)
[2021-03-23] MEDS: MELATONIN 5 MG TABLETS PO SCH (23:17)
[2021-03-23] MEDS: THIAMINE HCL 100 MG TABLET (FP) PO SCH (23:17)
[2021-03-24] MEDS: hydrOXYzine PAMOATE 25 MG CAPSULE (FP) PO SCH ×6 (06:35→22:49)
[2021-03-24] MEDS: MAG HYDROX/AL HYDROX/SIMETH 30 ML UNIT-DOSE CUP PO PRN (06:54)
[2021-03-24] MEDS ORDERED: methaDONE HCL 10 MG TABLET (FOR DETOX USE ONLY) ONE (09:31)
[2021-03-24] MEDS: METHOCARBAMOL 500 MG TABLET PO PRN ×2 (10:40→22:48)
[2021-03-24] MEDS: BICTEGRAV/EMTRICIT/TENOFOV (BIKTARVY) 50-200-25 MG TABLET PO SCH (10:40)
[2021-03-24] MEDS: diazePAM 5 MG TABLET PO PRN (10:41)
[2021-03-24] MEDS: PRENATAL VITAMINS W/ FOLIC ACID TABLET (FP) PO SCH (10:41)
[2021-03-24] MEDS: SULFAMETHOXAZOLE/TRIMETHOPRIM 800MG/160MG D.S. TABLET PO SCH (10:41)
[2021-03-24] MEDS: MELATONIN 5 MG TABLETS PO SCH (22:48)
[2021-03-24] MEDS: THIAMINE HCL 100 MG TABLET (FP) PO SCH (22:49)
[2021-03-25] MEDS: hydrOXYzine PAMOATE 25 MG CAPSULE (FP) PO SCH ×5 (07:12→22:54)
[2021-03-25] MEDS ORDERED: methaDONE HCL 10 MG TABLET (FOR DETOX USE ONLY) PO ONE (10:00)
[2021-03-25] MEDS: SULFAMETHOXAZOLE/TRIMETHOPRIM 800MG/160MG D.S. TABLET PO SCH (10:40)
[2021-03-25] MEDS: METHOCARBAMOL 500 MG TABLET PO PRN (10:40)
[2021-03-25] MEDS: BICTEGRAV/EMTRICIT/TENOFOV (BIKTARVY) 50-200-25 MG TABLET PO SCH (10:40)
[2021-03-25] MEDS: diazePAM 5 MG TABLET PO PRN (10:40)
[2021-03-25] MEDS: PRENATAL VITAMINS W/ FOLIC ACID TABLET (FP) PO SCH (10:42)
[2021-03-25] MEDS: MELATONIN 5 MG TABLETS PO SCH (22:54)
[2021-03-25] MEDS: THIAMINE HCL 100 MG TABLET (FP) PO SCH (22:54)
[2021-03-26] MEDS: hydrOXYzine PAMOATE 25 MG CAPSULE (FP) PO SCH ×5 (06:50→23:34)
[2021-03-26] MEDS: SULFAMETHOXAZOLE/TRIMETHOPRIM 800MG/160MG D.S. TABLET PO SCH (11:13)
[2021-03-26] MEDS: PRENATAL VITAMINS W/ FOLIC ACID TABLET (FP) PO SCH (11:13)
[2021-03-26] MEDS: BICTEGRAV/EMTRICIT/TENOFOV (BIKTARVY) 50-200-25 MG TABLET PO SCH (11:13)
[2021-03-26] MEDS: MELATONIN 5 MG TABLETS PO SCH (23:34)
[2021-03-26] MEDS: THIAMINE HCL 100 MG TABLET (FP) PO SCH (23:34)
[2021-03-27] MEDS: hydrOXYzine PAMOATE 25 MG CAPSULE (FP) PO SCH ×2 (07:42→11:10)
[2021-03-27 09:08] VITALS: BP 117/69; PULSE 79; TEMP 96.9
[2021-03-27] MEDS: BICTEGRAV/EMTRICIT/TENOFOV (BIKTARVY) 50-200-25 MG TABLET PO SCH (11:10)
[2021-03-27] MEDS: PRENATAL VITAMINS W/ FOLIC ACID TABLET (FP) PO SCH (11:10)
[2021-03-27] MEDS: SULFAMETHOXAZOLE/TRIMETHOPRIM 800MG/160MG D.S. TABLET PO SCH (11:10)
== END 2021-03-27 09:55 | disposition home or self-care (01) | DRG 773 ==
LOC: YASAS 11:34 → Y3N 15:33
PROVIDERS: ADMIT Allergy & Immunology; ATTEND Allergy & Immunology
PROC: HZ2ZZZZ Detoxification Services for Substance Abuse Treatment (ICD-10-PCS; principal; 2021-03-21)
DX: F11.23 Opioid dependence with withdrawal (principal); F12.20 Cannabis dependence, uncomplicated; F17.210 Nicotine dependence, cigarettes, uncomplicated; F19.24 Other psychoactive substance dependence with psychoactive substance-induced mood disorder; F41.9 Anxiety disorder, unspecified; F32.A Depression, unspecified; U07.1 COVID-19; B20 Human immunodeficiency virus [HIV] disease; G47.00 Insomnia, unspecified; Z87.39 Personal history of other diseases of the musculoskeletal system and connective tissue; Z87.09 Personal history of other diseases of the respiratory system; Z56.0 Unemployment, unspecified; Z59.01 Sheltered homelessness
CPT/HCPCS: 36415; 80053; 85027; 86780; C9803; Q0162; U0003; U0005

== ENCOUNTER 2021-06-23 15:15 | Inpatient (IN) | payer OTHER ==
[2021-06-23 16:00] VITALS: BMI 26.3
[2021-06-23] MEDS ORDERED: DICYCLOMINE HCL 10 MG CAPSULE PO PRN (16:31)
[2021-06-23] MEDS ORDERED: MAGNESIUM HYDROX 2400MG/30ML ORAL SUSPENSION 30 ML CUP PO PRN (16:31)
[2021-06-23] MEDS ORDERED: NICOTINE POLACRILEX 2 MG GUM BUC PRN (16:31)
[2021-06-23] MEDS ORDERED: ACETAMINOPHEN 325 MG TABLET (FP) PO PRN ×2 (16:31)
[2021-06-23] MEDS ORDERED: MAGNESIUM CITRATE 300 ML BOTTLE PO PRN (16:31)
[2021-06-23] MEDS ORDERED: BENZOCAINE/MENTHOL (CHLORASEPTIC ) LOZENGE MM PRN (16:31)
[2021-06-23] MEDS ORDERED: LOPERAMIDE HCL 2 MG CAPSULE PO PRN (16:31)
[2021-06-23] MEDS ORDERED: BISMUTH SUBSALICYLATE 524 MG/30 ML PO PRN (16:31)
[2021-06-23] MEDS ORDERED: BICTEGRAV/EMTRICIT/TENOFOV (BIKTARVY) 50-200-25 MG TABLET PO SCH (17:15)
[2021-06-23] MEDS: IBUPROFEN 400 MG TABLET (FP) PO PRN (18:31)
[2021-06-23] MEDS: ASPIRIN COATED 81 MG TABLET.EC PO SCH (18:31)
[2021-06-23] MEDS ORDERED: cloNIDine HCL 0.1 MG TABLET PO PRN (22:38)
[2021-06-23] MEDS: BICTEGRAV/EMTRICIT/TENOFOV (BIKTARVY) 50-200-25 MG TABLET PO SCH (22:49)
[2021-06-23] MEDS: SULFAMETHOXAZOLE/TRIMETHOPRIM 800MG/160MG D.S. TABLET PO SCH (22:49)
[2021-06-23] MEDS: THIAMINE HCL 100 MG TABLET (FP) PO SCH (22:51)
[2021-06-23] MEDS ORDERED: methaDONE HCL 10 MG TABLET (FOR DETOX USE ONLY) PO ONE (23:00)
[2021-06-24] MEDS ORDERED: methaDONE HCL 10 MG TABLET (FOR DETOX USE ONLY) ONE (09:21)
[2021-06-24] MEDS ORDERED: AZITHROMYCIN 600 MG TABLET PO SCH (10:00)
[2021-06-24] MEDS: BICTEGRAV/EMTRICIT/TENOFOV (BIKTARVY) 50-200-25 MG TABLET PO SCH ×2 (10:19→22:09)
[2021-06-24] MEDS: PRENATAL VITAMINS W/ FOLIC ACID TABLET (FP) PO SCH (10:19)
[2021-06-24] MEDS: ASPIRIN COATED 81 MG TABLET.EC PO SCH ×2 (10:21→10:54)
[2021-06-24] MEDS: SULFAMETHOXAZOLE/TRIMETHOPRIM 800MG/160MG D.S. TABLET PO SCH (10:21)
[2021-06-24 10:52] LABS: HEMOGLOBIN 12.7 GM/dL (11.7-16.9); MCH 31.7 pg (25.7-33.7); MCHC 34.2 g/dl (32.0-35.9); MEAN CELL VOLUME 92.5 fl (80-96); MEAN PLT VOLUME 9.9 fl (7.5-11.1); PLATELET COUNT 86 10^3/uL (134-434); RDW 12.4 % (11.9-15.9); WHITE BLOOD COUNT 2.3 K/mm3 (4.0-10.0)
[2021-06-24] MEDS: METHOCARBAMOL 500 MG TABLET PO PRN ×2 (10:52→22:09)
[2021-06-24 10:57] LABS: ALBUMIN 3.6 g/dl (3.4-5.0); CALCIUM 9.1 mg/dL (8.5-10.1)
[2021-06-24 10:58] LABS: BLOOD UREA NITROGEN 15.9 mg/dL (7-18)
[2021-06-24 11:00] LABS: CREATININE 0.9 mg/dL (0.55-1.3)
[2021-06-24 11:01] LABS: BILIRUBIN,TOTAL 1.1 mg/dL (0.2-1); TOT PROT 8.1 g/dl (6.4-8.2)
[2021-06-24] MEDS ORDERED: AZITHROMYCIN 200 MG/5 ML BOTTLE PO SCH (15:58)
[2021-06-24] MEDS: hydrOXYzine PAMOATE 25 MG CAPSULE (FP) PO PRN (18:09)
[2021-06-24] MEDS: ONDANSETRON *ODT* 4 MG TABLET SL PRN (18:13)
[2021-06-24] MEDS ORDERED: AZITHROMYCIN 250 MG TABLET PO ONE (18:56)
[2021-06-24] MEDS: THIAMINE HCL 100 MG TABLET (FP) PO SCH (22:08)
[2021-06-24] MEDS: MELATONIN 5 MG TABLETS PO PRN (22:08)
[2021-06-25] MEDS: METHOCARBAMOL 500 MG TABLET PO PRN ×2 (03:43→10:10)
[2021-06-25] MEDS ORDERED: methaDONE HCL 10 MG TABLET (FOR DETOX USE ONLY) PO ONE (10:00)
[2021-06-25] MEDS: hydrOXYzine PAMOATE 25 MG CAPSULE (FP) PO PRN (10:10)
[2021-06-25] MEDS: ASPIRIN COATED 81 MG TABLET.EC PO SCH (10:10)
[2021-06-25] MEDS: SULFAMETHOXAZOLE/TRIMETHOPRIM 800MG/160MG D.S. TABLET PO SCH (10:10)
[2021-06-25] MEDS: PRENATAL VITAMINS W/ FOLIC ACID TABLET (FP) PO SCH (10:10)
[2021-06-26 00:07] LABS: SARS-CoV-2 NAA Not Detected (Not Detected)
[2021-06-26] MEDS: THIAMINE HCL 100 MG TABLET (FP) PO SCH ×2 (00:31→22:09)
[2021-06-26] MEDS: BICTEGRAV/EMTRICIT/TENOFOV (BIKTARVY) 50-200-25 MG TABLET PO SCH ×2 (00:31→22:08)
[2021-06-26] MEDS: METHOCARBAMOL 500 MG TABLET PO PRN (03:14)
[2021-06-26] MEDS: ONDANSETRON *ODT* 4 MG TABLET SL PRN (06:05)
[2021-06-26] MEDS: MAG HYDROX/AL HYDROX/SIMETH 30 ML UNIT-DOSE CUP PO PRN (07:34)
[2021-06-26] MEDS ORDERED: methaDONE HCL 10 MG TABLET (FOR DETOX USE ONLY) ONE (09:24)
[2021-06-26] MEDS: ASPIRIN COATED 81 MG TABLET.EC PO SCH (10:10)
[2021-06-26] MEDS: SULFAMETHOXAZOLE/TRIMETHOPRIM 800MG/160MG D.S. TABLET PO SCH (10:10)
[2021-06-26] MEDS: PRENATAL VITAMINS W/ FOLIC ACID TABLET (FP) PO SCH (10:13)
[2021-06-26] MEDS ORDERED: TRIMETHOBENZAMIDE HCL 200MG/2ML INJ IM ONE (10:30)
[2021-06-26] MEDS: hydrOXYzine PAMOATE 25 MG CAPSULE (FP) PO PRN (22:08)
[2021-06-26] MEDS: MELATONIN 5 MG TABLETS PO PRN (22:09)
[2021-06-26] MEDS: IBUPROFEN 400 MG TABLET (FP) PO PRN (22:11)
[2021-06-27] MEDS: MAG HYDROX/AL HYDROX/SIMETH 30 ML UNIT-DOSE CUP PO PRN (05:40)
[2021-06-27] MEDS: ONDANSETRON *ODT* 4 MG TABLET SL PRN (07:51)
[2021-06-27] MEDS ORDERED: methaDONE HCL 10 MG TABLET (FOR DETOX USE ONLY) PO ONE (10:00)
[2021-06-27] MEDS: METHOCARBAMOL 500 MG TABLET PO PRN (10:32)
[2021-06-27] MEDS: SULFAMETHOXAZOLE/TRIMETHOPRIM 800MG/160MG D.S. TABLET PO SCH (10:32)
[2021-06-27] MEDS: PRENATAL VITAMINS W/ FOLIC ACID TABLET (FP) PO SCH (10:32)
[2021-06-27] MEDS: ASPIRIN COATED 81 MG TABLET.EC PO SCH (10:32)
[2021-06-27] MEDS: MELATONIN 5 MG TABLETS PO PRN (22:08)
[2021-06-27] MEDS: IBUPROFEN 400 MG TABLET (FP) PO PRN (22:08)
[2021-06-27] MEDS: BICTEGRAV/EMTRICIT/TENOFOV (BIKTARVY) 50-200-25 MG TABLET PO SCH (22:08)
[2021-06-27] MEDS: THIAMINE HCL 100 MG TABLET (FP) PO SCH (22:08)
[2021-06-28] MEDS: hydrOXYzine PAMOATE 25 MG CAPSULE (FP) PO PRN (09:30)
[2021-06-28] MEDS: SULFAMETHOXAZOLE/TRIMETHOPRIM 800MG/160MG D.S. TABLET PO SCH (09:30)
[2021-06-28] MEDS: ASPIRIN COATED 81 MG TABLET.EC PO SCH (09:30)
[2021-06-28] MEDS: METHOCARBAMOL 500 MG TABLET PO PRN (09:30)
[2021-06-28] MEDS: PRENATAL VITAMINS W/ FOLIC ACID TABLET (FP) PO SCH (09:30)
[2021-06-28] MEDS: IBUPROFEN 400 MG TABLET (FP) PO PRN (11:22)
[2021-06-28 13:11] VITALS: BP 115/69; PULSE 77; TEMP 98.1
[2021-07-01] MEDS ORDERED: AZITHROMYCIN 200 MG/5 ML BOTTLE PO SCH (10:00)
== END 2021-06-28 12:45 | disposition other institution (70) | DRG 773 ==
LOC: YASAS 15:15 → Y6N 17:01 → UNDOADMIN 17:01
PROVIDERS: ADMIT Allergy & Immunology; ATTEND Surgery
PROC: HZ2ZZZZ Detoxification Services for Substance Abuse Treatment (ICD-10-PCS; principal; 2021-06-23)
DX: F11.23 Opioid dependence with withdrawal (principal); F14.20 Cocaine dependence, uncomplicated; F12.20 Cannabis dependence, uncomplicated; F17.210 Nicotine dependence, cigarettes, uncomplicated; B20 Human immunodeficiency virus [HIV] disease; B18.2 Chronic viral hepatitis C; D72.823 Leukemoid reaction; Z99.89 Dependence on other enabling machines and devices
CPT/HCPCS: 36415; 80053; 85027; 86780; 87811; C9803-CS; J0735; Q0162; U0003; U0005

== ENCOUNTER 2021-06-28 12:35 | Inpatient (IN) | payer OTHER ==
[2021-06-28] MEDS ORDERED: MAGNESIUM CITRATE 300 ML BOTTLE PO PRN (13:15)
[2021-06-28] MEDS ORDERED: MAGNESIUM HYDROX 2400MG/30ML ORAL SUSPENSION 30 ML CUP PO PRN (13:15)
[2021-06-28] MEDS ORDERED: BENZOCAINE/MENTHOL (CHLORASEPTIC ) LOZENGE MM PRN (13:15)
[2021-06-28] MEDS ORDERED: LOPERAMIDE HCL 2 MG CAPSULE PO PRN (13:15)
[2021-06-28] MEDS ORDERED: P-EPHED 60MG/TRIPROLIDI 2.5MG TABLET PO PRN (13:15)
[2021-06-28] MEDS ORDERED: NICOTINE 10 MG CARTRIDGE (INHALER) IH PRN (13:15)
[2021-06-28] MEDS ORDERED: hydrOXYzine PAMOATE 25 MG CAPSULE (FP) PO PRN (13:15)
[2021-06-28] MEDS ORDERED: MAG HYDROX/AL HYDROX/SIMETH 30 ML UNIT-DOSE CUP PO PRN (13:15)
[2021-06-28] MEDS ORDERED: ACETAMINOPHEN 325 MG TABLET (FP) PO PRN (13:15)
[2021-06-28] MEDS ORDERED: guaiFENesin 200 MG/10 ML 10 ML UNIT-DOSE CUPS PO PRN (13:15)
[2021-06-28] MEDS: MELATONIN 5 MG TABLETS PO SCH (21:23)
[2021-06-28] MEDS: THIAMINE HCL 100 MG TABLET (FP) PO SCH (21:23)
[2021-06-28] MEDS: BICTEGRAV/EMTRICIT/TENOFOV (BIKTARVY) 50-200-25 MG TABLET PO SCH (21:23)
[2021-06-29] MEDS: SULFAMETHOXAZOLE/TRIMETHOPRIM 800MG/160MG D.S. TABLET PO SCH (09:59)
[2021-06-29] MEDS: ASPIRIN COATED 81 MG TABLET.EC PO SCH (09:59)
[2021-06-29] MEDS: NICOTINE 7 MG/24 HOURS TOPICAL PATCH TD SCH (09:59)
[2021-06-29] MEDS: PRENATAL VITAMINS W/ FOLIC ACID TABLET (FP) PO SCH (09:59)
[2021-06-29] MEDS: IBUPROFEN 400 MG TABLET (FP) PO PRN (10:00)
[2021-06-29] MEDS ORDERED: BACITRACIN 0.9 GM PACKET TP SCH (15:31)
[2021-06-29] MEDS: MELATONIN 5 MG TABLETS PO SCH (21:20)
[2021-06-29] MEDS: BICTEGRAV/EMTRICIT/TENOFOV (BIKTARVY) 50-200-25 MG TABLET PO SCH (21:21)
[2021-06-29] MEDS: THIAMINE HCL 100 MG TABLET (FP) PO SCH (21:21)
[2021-06-30 06:47] VITALS: BP 114/79; PULSE 77; TEMP 97.1
[2021-06-30] MEDS: IBUPROFEN 400 MG TABLET (FP) PO PRN (10:20)
[2021-06-30] MEDS: ASPIRIN COATED 81 MG TABLET.EC PO SCH (10:21)
[2021-06-30] MEDS: SULFAMETHOXAZOLE/TRIMETHOPRIM 800MG/160MG D.S. TABLET PO SCH (10:21)
[2021-06-30] MEDS: PRENATAL VITAMINS W/ FOLIC ACID TABLET (FP) PO SCH (10:22)
[2021-06-30] MEDS: NICOTINE 7 MG/24 HOURS TOPICAL PATCH TD SCH (10:22)
[2021-06-30] MEDS ORDERED: TUBERCULIN PPD 5 TU/0.1ML VIAL ID ONE (16:55)
[2021-07-01] MEDS ORDERED: AZITHROMYCIN 600 MG TABLET PO SCH (10:00)
== END 2021-06-30 20:00 | disposition left against medical advice (07) | DRG 770 ==
LOC: YASAS 12:35 → Y3E 12:37
PROVIDERS: ADMIT Allergy & Immunology; ATTEND Psychiatry & Neurology Pain Medicine
PROC: HZ2ZZZZ Detoxification Services for Substance Abuse Treatment (ICD-10-PCS; principal; 2021-06-28)
DX: F11.20 Opioid dependence, uncomplicated (principal); F12.20 Cannabis dependence, uncomplicated; F17.210 Nicotine dependence, cigarettes, uncomplicated; B20 Human immunodeficiency virus [HIV] disease; M54.50 Low back pain, unspecified; G89.29 Other chronic pain; Z99.89 Dependence on other enabling machines and devices

== ENCOUNTER 2021-09-21 09:11 | Inpatient (IN) | payer OTHER ==
[2021-09-21 10:07] VITALS: BMI 20.6
[2021-09-21] MEDS ORDERED: BUPRENORPHINE HCL 150 MCG, BUPRENORPHINE HCL 75 MCG BC PRN (11:24)
[2021-09-21] MEDS ORDERED: DICYCLOMINE HCL 10 MG CAPSULE PO PRN (11:24)
[2021-09-21] MEDS ORDERED: BENZOCAINE/MENTHOL (CHLORASEPTIC ) LOZENGE MM PRN (11:24)
[2021-09-21] MEDS ORDERED: LOPERAMIDE HCL 2 MG CAPSULE PO PRN (11:24)
[2021-09-21] MEDS ORDERED: MAGNESIUM CITRATE 300 ML BOTTLE PO PRN (11:24)
[2021-09-21] MEDS ORDERED: cloNIDine HCL 0.1 MG TABLET PO ONE (11:24)
[2021-09-21] MEDS ORDERED: METHOCARBAMOL 500 MG TABLET PO PRN (11:24)
[2021-09-21] MEDS ORDERED: NICOTINE 10 MG CARTRIDGE (INHALER) IH PRN (11:24)
[2021-09-21] MEDS ORDERED: IBUPROFEN 600 MG TABLET (FP) PO PRN (11:24)
[2021-09-21] MEDS ORDERED: MAG HYDROX/AL HYDROX/SIMETH 30 ML UNIT-DOSE CUP PO PRN (11:24)
[2021-09-21] MEDS ORDERED: BISMUTH SUBSALICYLATE 262 MG/15 ML BTL PO PRN (11:24)
[2021-09-21] MEDS ORDERED: BUPRENORPHINE HCL 150 MCG, BUPRENORPHINE HCL 75 MCG BC ONE (11:24)
[2021-09-21] MEDS ORDERED: IBUPROFEN 400 MG TABLET (FP) PO PRN (11:24)
[2021-09-21] MEDS ORDERED: diazePAM 5 MG TABLET PO PRN (11:24)
[2021-09-21] MEDS ORDERED: MAGNESIUM HYDROX 2400MG/30ML ORAL SUSPENSION 30 ML CUP PO PRN (11:24)
[2021-09-21] MEDS ORDERED: ACETAMINOPHEN 325 MG TABLET (FP) PO PRN ×2 (11:24)
[2021-09-21] MEDS ORDERED: ONDANSETRON *ODT* 4 MG TABLET SL PRN (11:24)
[2021-09-21] MEDS ORDERED: NALOXONE (NARCAN) HCL 4 MG/0.1 ML SPRAY NS SCH (11:30)
[2021-09-21] MEDS: VITAMINS A AND D TOPICAL OINTMENT 60 GM TUBE TP SCH ×2 (12:00→20:39)
[2021-09-21] MEDS: PRENATAL VITAMINS W/ FOLIC ACID TABLET (FP) PO SCH (12:06)
[2021-09-21] MEDS: SULFAMETHOXAZOLE/TRIMETHOPRIM 800MG/160MG D.S. TABLET PO SCH (12:06)
[2021-09-21] MEDS: hydrOXYzine PAMOATE 25 MG CAPSULE (FP) PO SCH ×3 (13:44→22:22)
[2021-09-21] MEDS ORDERED: cloNIDine HCL 0.1 MG TABLET PO PRN (15:24)
[2021-09-21 16:35] LABS: HEMATOCRIT 35.1 % (35.4-49); MCH 31.2 pg (25.7-33.7); MCHC 34.2 g/dl (32.0-35.9); MEAN CELL VOLUME 91.2 fl (80-96); MEAN PLT VOLUME 10.1 fl (7.5-11.1); PLATELET COUNT 82 10^3/uL (134-434); RBC 3.85 M/mm3 (4.00-5.60); RDW 16.5 % (11.9-15.9)
[2021-09-21 16:44] LABS: BLOOD UREA NITROGEN 9.7 mg/dL (7-18); CALCIUM 8.3 mg/dL (8.5-10.1)
[2021-09-21 16:45] LABS: ALBUMIN 3.2 g/dl (3.4-5.0)
[2021-09-21 16:48] LABS: CREATININE 0.8 mg/dL (0.55-1.3)
[2021-09-21 16:50] LABS: BILIRUBIN,TOTAL 0.6 mg/dL (0.2-1); TOT PROT 7.2 g/dl (6.4-8.2)
[2021-09-21 16:59] LABS: WHITE BLOOD COUNT 1.8 K/mm3 (4.0-10.0)
[2021-09-21] MEDS: THIAMINE HCL 100 MG TABLET (FP) PO SCH (22:22)
[2021-09-21] MEDS: MELATONIN 5 MG TABLETS PO SCH (22:22)
[2021-09-22] MEDS ORDERED: BUPRENORPHINE HCL 150 MCG, BUPRENORPHINE HCL 75 MCG BC PRN
[2021-09-22] MEDS: VITAMINS A AND D TOPICAL OINTMENT 60 GM TUBE TP SCH ×5 (00:25→23:37)
[2021-09-22] MEDS: BUPRENORPHINE HCL 150 MCG, BUPRENORPHINE HCL 75 MCG BC SCH ×2 (07:18→18:43)
[2021-09-22] MEDS: hydrOXYzine PAMOATE 25 MG CAPSULE (FP) PO SCH ×5 (07:18→22:39)
[2021-09-22] MEDS: BICTEGRAV/EMTRICIT/TENOFOV (BIKTARVY) 50-200-25 MG TABLET PO SCH (07:20)
[2021-09-22] MEDS ORDERED: CLINDAMYCIN PHOSPHATE 1% TOPICAL GEL 30 GM TUBE TP SCH (10:00)
[2021-09-22] MEDS ORDERED: ASPIRIN COATED 81 MG TABLET.EC PO SCH (10:00)
[2021-09-22] MEDS: SULFAMETHOXAZOLE/TRIMETHOPRIM 800MG/160MG D.S. TABLET PO SCH (10:31)
[2021-09-22] MEDS: PRENATAL VITAMINS W/ FOLIC ACID TABLET (FP) PO SCH (10:31)
[2021-09-22 17:45] VITALS: TEMP 97.3
[2021-09-22] MEDS: MELATONIN 5 MG TABLETS PO SCH (22:39)
[2021-09-22] MEDS: THIAMINE HCL 100 MG TABLET (FP) PO SCH (22:39)
[2021-09-23] MEDS: hydrOXYzine PAMOATE 25 MG CAPSULE (FP) PO SCH (05:29)
[2021-09-23] MEDS: VITAMINS A AND D TOPICAL OINTMENT 60 GM TUBE TP SCH (05:29)
[2021-09-23] MEDS ORDERED: BUPRENORPHINE HCL 450 MCG FILM BC SCH (06:00)
[2021-09-23] MEDS: BICTEGRAV/EMTRICIT/TENOFOV (BIKTARVY) 50-200-25 MG TABLET PO SCH (07:17)
[2021-09-23 08:57] VITALS: BP 150/91; PULSE 52; RESP 18
[2021-09-23] MEDS ORDERED: AZITHROMYCIN 600 MG TABLET PO SCH (10:00)
[2021-09-23 10:29] LABS: HEMATOCRIT 37.2 % (35.4-49); HEMOGLOBIN 13.1 GM/dL (11.7-16.9); MCH 31.4 pg (25.7-33.7); MCHC 35.3 g/dl (32.0-35.9); MEAN CELL VOLUME 89.1 fl (80-96); MEAN PLT VOLUME 9.2 fl (7.5-11.1); PLATELET COUNT 115 10^3/uL (134-434); RBC 4.18 M/mm3 (4.00-5.60); RDW 16.9 % (11.9-15.9); WHITE BLOOD COUNT 2.3 K/mm3 (4.0-10.0)
[2021-09-24] MEDS ORDERED: BUPRENORPHINE/NALOXONE 4 MG/1 MG FILM PACKET SL SCH (06:00)
[2021-09-25] MEDS ORDERED: BUPRENORPHINE/NALOXONE 8 MG/2 MG FILM PACKET SL ONE (06:00)
== END 2021-09-23 09:05 | disposition left against medical advice (07) | DRG 770 ==
LOC: YASAS 09:11 → Y3N 11:22
PROVIDERS: ADMIT Allergy & Immunology; ATTEND Surgery
PROC: HZ2ZZZZ Detoxification Services for Substance Abuse Treatment (ICD-10-PCS; principal; 2021-09-21)
DX: F11.23 Opioid dependence with withdrawal (principal); F14.20 Cocaine dependence, uncomplicated; F12.20 Cannabis dependence, uncomplicated; F17.210 Nicotine dependence, cigarettes, uncomplicated; B20 Human immunodeficiency virus [HIV] disease; D72.819 Decreased white blood cell count, unspecified; I83.891 Varicose veins of right lower extremity with other complications; L97.819 Non-pressure chronic ulcer of other part of right lower leg with unspecified severity; B18.2 Chronic viral hepatitis C; M41.9 Scoliosis, unspecified; R63.4 Abnormal weight loss; Z68.20 Body mass index [BMI] 20.0-20.9, adult; Z99.89 Dependence on other enabling machines and devices
CPT/HCPCS: 36415; 80053; 85027; 86780; C9803-CS; J0735; U0003; U0005

== ENCOUNTER 2021-11-11 15:06 | Inpatient (IN) | payer OTHER ==
[2021-11-11 16:25] VITALS: BMI 21.9
[2021-11-11] MEDS ORDERED: BENZOCAINE/MENTHOL (CHLORASEPTIC ) LOZENGE MM PRN (16:43)
[2021-11-11] MEDS ORDERED: NICOTINE POLACRILEX 2 MG GUM BUC PRN (16:43)
[2021-11-11] MEDS ORDERED: guaiFENesin 200 MG/10 ML 10 ML UNIT-DOSE CUPS PO PRN (16:43)
[2021-11-11] MEDS ORDERED: IBUPROFEN 600 MG TABLET (FP) PO PRN (16:43)
[2021-11-11] MEDS ORDERED: NALOXONE HCL 0.4 MG/ML VIAL IM PRN (16:43)
[2021-11-11] MEDS ORDERED: IBUPROFEN 400 MG TABLET (FP) PO PRN (16:43)
[2021-11-11] MEDS ORDERED: hydrOXYzine PAMOATE 25 MG CAPSULE (FP) PO PRN (16:43)
[2021-11-11] MEDS ORDERED: NALOXONE HCL (KLOXXADO) 8 MG SPRAY NS PRN (16:43)
[2021-11-11] MEDS ORDERED: BISMUTH SUBSALICYLATE 524 MG/30 ML PO PRN (16:43)
[2021-11-11] MEDS ORDERED: P-EPHED 60MG/TRIPROLIDI 2.5MG TABLET PO PRN (16:43)
[2021-11-11] MEDS ORDERED: MAGNESIUM CITRATE 300 ML BOTTLE PO PRN (16:43)
[2021-11-11] MEDS ORDERED: METHOCARBAMOL 500 MG TABLET PO PRN (16:43)
[2021-11-11] MEDS ORDERED: MAGNESIUM HYDROX 2400MG/30ML ORAL SUSPENSION 30 ML CUP PO PRN (16:43)
[2021-11-11] MEDS ORDERED: ONDANSETRON *ODT* 4 MG TABLET SL PRN (16:43)
[2021-11-11] MEDS ORDERED: DICYCLOMINE HCL 10 MG CAPSULE PO PRN (16:43)
[2021-11-11] MEDS ORDERED: LOPERAMIDE HCL 2 MG CAPSULE PO PRN (16:43)
[2021-11-11] MEDS ORDERED: ACETAMINOPHEN 325 MG TABLET (FP) PO PRN ×2 (16:43)
[2021-11-11] MEDS ORDERED: AZITHROMYCIN 600 MG TABLET PO SCH (17:00)
[2021-11-11] MEDS: SULFAMETHOXAZOLE/TRIMETHOPRIM 800MG/160MG D.S. TABLET PO SCH (23:12)
[2021-11-11] MEDS: MELATONIN 5 MG TABLETS PO PRN (23:12)
[2021-11-11] MEDS: THIAMINE HCL 100 MG TABLET (FP) PO SCH (23:12)
[2021-11-11] MEDS: BICTEGRAV/EMTRICIT/TENOFOV (BIKTARVY) 50-200-25 MG TABLET PO SCH (23:15)
[2021-11-12 09:52] LABS: CALCIUM 8.5 mg/dL (8.5-10.1)
[2021-11-12 09:55] LABS: ALBUMIN 2.7 g/dl (3.4-5.0); BLOOD UREA NITROGEN 11.3 mg/dL (7-18)
[2021-11-12 09:58] LABS: CREATININE 0.7 mg/dL (0.55-1.3)
[2021-11-12 09:59] LABS: HEMATOCRIT 34.2 % (35.4-49); HEMOGLOBIN 11.4 GM/dL (11.7-16.9); MCHC 33.3 g/dl (32.0-35.9); MEAN PLT VOLUME 9.6 fl (7.5-11.1); PLATELET COUNT 81 10^3/uL (134-434); RBC 3.67 M/mm3 (4.00-5.60); RDW 14.7 % (11.9-15.9)
[2021-11-12 10:00] LABS: BILIRUBIN,TOTAL 0.5 mg/dL (0.2-1)
[2021-11-12 10:04] LABS: TOT PROT 6.1 g/dl (6.4-8.2)
[2021-11-12] MEDS: SULFAMETHOXAZOLE/TRIMETHOPRIM 800MG/160MG D.S. TABLET PO SCH (10:10)
[2021-11-12] MEDS: ASPIRIN COATED 81 MG TABLET.EC PO SCH (10:10)
[2021-11-12] MEDS: BICTEGRAV/EMTRICIT/TENOFOV (BIKTARVY) 50-200-25 MG TABLET PO SCH ×2 (10:11→23:02)
[2021-11-12] MEDS: PRENATAL VITAMINS W/ FOLIC ACID TABLET (FP) PO SCH (10:12)
[2021-11-12 10:23] LABS: WHITE BLOOD COUNT 1.9 K/mm3 (4.0-10.0)
[2021-11-12] MEDS: THIAMINE HCL 100 MG TABLET (FP) PO SCH (23:01)
[2021-11-13] MEDS ORDERED: diazePAM 5 MG TABLET PO PRN (09:52)
[2021-11-13] MEDS ORDERED: TRIMETHOBENZAMIDE HCL 200MG/2ML INJ IM ONE (09:53)
[2021-11-13] MEDS: SULFAMETHOXAZOLE/TRIMETHOPRIM 800MG/160MG D.S. TABLET PO SCH (10:27)
[2021-11-13] MEDS: ASPIRIN COATED 81 MG TABLET.EC PO SCH (10:27)
[2021-11-13] MEDS: PRENATAL VITAMINS W/ FOLIC ACID TABLET (FP) PO SCH (10:27)
[2021-11-13] MEDS: BUPRENORPHINE/NALOXONE 8 MG/2 MG FILM PACKET SL SCH ×3 (10:27→22:06)
[2021-11-13] MEDS: MAG HYDROX/AL HYDROX/SIMETH 30 ML UNIT-DOSE CUP PO PRN ×2 (13:40→22:07)
[2021-11-13] MEDS: BICTEGRAV/EMTRICIT/TENOFOV (BIKTARVY) 50-200-25 MG TABLET PO SCH (22:06)
[2021-11-13] MEDS: THIAMINE HCL 100 MG TABLET (FP) PO SCH (22:06)
[2021-11-13] MEDS: MELATONIN 5 MG TABLETS PO PRN (22:07)
[2021-11-14] MEDS: BUPRENORPHINE/NALOXONE 8 MG/2 MG FILM PACKET SL SCH (05:43)
[2021-11-14] MEDS: MAG HYDROX/AL HYDROX/SIMETH 30 ML UNIT-DOSE CUP PO PRN (06:05)
[2021-11-14 09:27] VITALS: BP 155/89; PULSE 57; RESP 18; TEMP 98.3
[2021-11-14] MEDS: SULFAMETHOXAZOLE/TRIMETHOPRIM 800MG/160MG D.S. TABLET PO SCH (10:12)
[2021-11-14] MEDS: ASPIRIN COATED 81 MG TABLET.EC PO SCH (10:12)
[2021-11-14] MEDS: PRENATAL VITAMINS W/ FOLIC ACID TABLET (FP) PO SCH (10:13)
== END 2021-11-14 13:20 | disposition home or self-care (01) | DRG 773 ==
LOC: YASAS 15:06 → Y3N 17:59 → UNDOADMIN 17:59
PROVIDERS: ADMIT Allergy & Immunology; ATTEND Surgery
PROC: HZ2ZZZZ Detoxification Services for Substance Abuse Treatment (ICD-10-PCS; principal; 2021-11-11)
DX: F11.23 Opioid dependence with withdrawal (principal); F17.210 Nicotine dependence, cigarettes, uncomplicated; U07.1 COVID-19; D61.818 Other pancytopenia; E46 Unspecified protein-calorie malnutrition; J45.909 Unspecified asthma, uncomplicated; B18.2 Chronic viral hepatitis C; R74.01 Elevation of levels of liver transaminase levels
CPT/HCPCS: 36415; 80053; 85027; 86780; C9803-CS; U0003; U0005